=== PATIENT | male | born 1955 | race Hispanic/Latino ===

== ENCOUNTER 2016-09-13 09:27 | Emergency (ER) | payer OTHER ==
[~2016-09-13] VITALS: Ht 167.6 cm; Wt 81.6 kg
[~2016-09-13 09:27] MED LIST: ADVAIR 250-501 EACH INH; AMLODIPINE BESY10 M1 PO; ATORVASTATIN CA40 M1 PO; COUMADIN5 M2 PO; DEPAKOTE500 M1 PO; ELIQUIS5 M1 PO; GABAPENTIN300 M2 PO; HYDROXYZINE PAM50 M1 PO; IRON SUPPLEMEN325 MG PO; LEXAPRO5 M1 PO; LISINOPRIL-HCT1 EAC1 PO; OMEPRAZOLE40 M1 PO; OXYCODONE HCL10 M2 PO; OXYCODONE HCL5 M1 PO; PERCOCET 5-3251 EACH PO; PROVENTIL HFA6.7 GM; PROVENTIL HFA6.7 GM INH; VALIUM5 M2 PO; XARELTO10 M1 PO; XARELTO20 M2 PO
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
[2016-09-13 11:18] VITALS: BP 140/74
[2016-09-13 11:25] LABS: ABSOLUTE BASOPHIL COUNT 0 /CUMM (0.0-0.2); ABSOLUTE EOSINOPHIL COUNT 0.3 /CUMM (0.0-0.7); ABSOLUTE GRANULOCYTE CT 1.7 /CUMM (1.4-6.5); ABSOLUTE LYMPH COUNT 1.5 /CUMM (1.2-3.4); ABSOLUTE MONOCYTE COUNT 0.3 /CUMM (0.10-0.60); BASOPHIL % 0.8 % (0.0-2.0); EOSINOPHIL % 7.9 % (0-5); GRANULOCYTE % 45.5 % (42.2-75.2); HEMATOCRIT 30.4 % (42-52); MEAN CORPUSCULAR HGB 30.8 PG (27.0-31.0); MEAN CORPUSCULAR HGB CONC 33.3 G/DL (33.0-37.0); MEAN CORPUSCULAR VOLUME 92.6 FL (80.0-94.0); MEAN PLATELET VOLUME 7.7 FL (7.4-10.4); PLATELET COUNT 168 /CUMM (130-400); RBC DISTRIBUTION WIDTH 13.6 % (11.5-14.5); RED BLOOD CELL CT 3.28 /CUMM (4.70-6.10); WHITE BLOOD CELL COUNT 3.8 /CUMM (4.8-10.8)
[2016-09-13] MEDS ORDERED: PERCOCET 5-3251 EACH PO (12:05)
== END 2016-09-13 12:15 ==
LOC: ERH 09:27
PROVIDERS: Physician Assistant
DX: G89.29 Other chronic pain (principal); R07.9 Chest pain, unspecified
CPT/HCPCS: 93005; 93010

== ENCOUNTER 2016-10-05 12:08 | Emergency (ER) | payer OTHER ==
--- NOTE | 2016-10-05 13:10 | RADIOLOGY REPORT ---
EXAMINATION: XR SHOULDER, LEFT CLINICAL INFORMATION: Pain after fall. Decreased range of motion. COMPARISON: None TECHNIQUE: AP external rotation, Grashey, scapular Y, and axillary views of the left shoulder. FINDINGS: There is no visible acute fracture or dislocation. There is a large calcification lateral to the femoral head suggestive of calcific bursitis. The AC joint and glenohumeral joint space is maintained. IMPRESSION: Large calcific bursitis. No visible acute fracture or dislocation seen.
--- NOTE | 2016-10-05 13:28 | ED UPPER/LOWER EXTREMITY COMPL ---
History of Present Illness General Chief Complaint: Fall Stated Complaint: PT STATES " I FELL IM IN PAIN" Source: patient Exam Limitations: no limitations Vital Signs & Intake/Output Vital Signs & Intake/Output Vital Signs Date Time Temp Pulse Resp B/P B/P Pulse O2 O2 Flow FiO2 Mean Ox Delivery Rate 10/05 1441 98 10/05 1434 97.8 62 16 143/66 98 Room Air 10/05 1222 97.7 61 22 138/74 98 Allergies Coded Allergies: ciprofloxacin (From CIPRO) (affected kidneys 02/07/16) Reconcile Medications Albuterol Sulfate (Proventil Hfa) 6.7 GM HFA.AER.AD 2 PUF INH 4 TIMES/DAY BREATHING (Reported) Apixaban (Eliquis) 5 MG TABLET 1 TAB PO BID PVD Atorvastatin Calcium 40 MG TABLET 1 TAB PO DAILY HIGH CHOLESTEROL (Reported) Diazepam (Valium) 5 MG TABLET 1 TAB PO DAILY SPASMS (Reported) Divalproex Sodium (Depakote) 500 MG TABLET.DR 1 TAB PO DAILY SEIZURE ( Reported) Divalproex Sodium (Depakote) 500 MG TABLET.DR 1 TAB PO AT BEDTIME SEIZURE ( Reported) Escitalopram Oxalate (Lexapro) 5 MG TABLET 1 TAB PO DAILY DEPRESSION ( Reported) Ferrous Sulfate (Iron Supplement) 325 MG TABLET 1 TAB PO DAILY IRON, VITAMIN (Reported) Fluticasone/Salmeterol (Advair 250-50 Diskus) 1 EACH BLST.W.DEV 1 PUF INH BID ASTHMA (Reported) Gabapentin 300 MG CAPSULE 1 CAP PO TID NEUROPATHY (Reported) Hydroxyzine Pamoate 50 MG CAPSULE 1 CAP PO TID Antihistamine (Reported) Omeprazole 40 MG CAPSULE.DR 1 CAP PO DAILY GERD (Reported) Oxycodone HCl/Acetaminophen (Percocet 5-325 MG Tablet) 1 EACH TABLET 1 TAB PO Q4-6 PRN pain Oxycodone HCl/Acetaminophen (Percocet 5-325 MG Tablet) 1 EACH TABLET 1 TAB PO BID pain Oxycodone HCl/Acetaminophen (Percocet 5-325 MG Tablet) 5 MG-325 MG TABLET 1 TAB PO Q6H PRN PAIN Oxycodone HCl/Acetaminophen (Percocet 5-325 MG Tablet) 1 EACH TABLET 1 TAB PO Q4-6 PRN pain . Oxycodone HCl/Acetaminophen (Percocet 5-325 MG Tablet) 5 MG-325 MG TABLET 1 TAB PO BID PRN PAIN Triage Note: PER PT "DON'T KNOW IF IT WAS A SZ OR WHAT, BUT YESTERDAY WOKE UP ON FLOOR,TODAY UNABLE TO RAISE SHOULDER ON L SIDE. ALSO L KNEE HURTS A BIT. DECREASED ROM OF L SHOULDER Triage Nurses Notes Reviewed? yes Onset: Abrupt Duration: constant Timing: recent history Severity: severe Severity Numbers: 10 HPI: Patient is a 61-year-old male with past medical history of seizure who is compliant with his Depakote medications to presents to emergency room stating that yesterday patient believes that he had a seizure at his house where he woke up on the floor however he does not recall the events prior. Patient was woken up by his dog licking his face however after the event patient has been complaining of sharp stabbing history left-sided shoulder pain. Patient states that he took multiple previously prescribed narcotic and pain medications with no relief of symptoms. Patient states that left arm movements make worse. Denies any current headache blurred vision neck pain back pain abdominal pain and elbow pain wrist pain. Patient is RIGHT arm dominant Denies any tongue biting episode or bowel bladder incontinence after THE EPISODE YESTERDAY Past History Travel History Traveled to [facility] [place] past 21 day No Medical History Any Pertinent Medical History? see below for history Neurological: CVA, seizure EENT: NONE Cardiovascular: hypertension, PVD, HIGH CHOLESTEROL Respiratory: asthma Gastrointestinal: GERD Hepatic: NONE Renal: NONE Musculoskeletal: NONE Psychiatric: NONE Endocrine: NONE Blood Disorders: NONE Cancer(s): NONE ADMIN ASST/Reproductive: NONE History of MRSA: No History of VRE: No History of CDIFF: No Surgical History Surgical History: SKIN GRAFT PERIPHERAL VASCULAR PROC Psychosocial History Who do you live with Significant Other Services at Home None What is your primary language Iranian Tobacco Use: Never used Family History Hx Contributory? No Review of Systems Review of Systems Constitutional: Reports: no symptoms. EENTM: Reports: no symptoms. Respiratory: Reports: no symptoms. Cardiovascular: Reports: no symptoms. Gastrointestinal/Abdominal: Reports: no symptoms. Genitourinary: Reports: no symptoms. Musculoskeletal: Reports: see HPI, joint pain. Skin: Reports: no symptoms. Neurological/Psychological: Reports: no symptoms. Hematologic/Endocrine: Reports: no symptoms. Immunological: Reports: no symptoms. All Other Systems: Reviewed and Negative Physical Exam Physical Exam General Appearance: no apparent distress, alert, comfortable Neurologic/Tendon: normal sensation, normal motor functions, normal tendon functions, responds to pain, no evidence tendon injury, no pulse deficit Skin: intact, normal color, warm/dry Comments: Well-developed well-nourished person in no acute distress HEENT: Normal EENT exam, extraocular motion intact, no nystagmus. Pupils equally round and reactive to light and accommodation. Nose is atraumatic. External auditory canal and Tympanic membranes clear. Pharynx normal. No swelling or edema. Neck: Supple, no lymphadenopathy, normal range of motion without pain or tenderness No central spinous tenderness Back: Nontender, no CVA tenderness. No central spinous tenderness Cardiovascular: Regular rate and rhythms no murmurs rubs or gallops, normal JVP Respiratory: Chest nontender. No respiratory distress.breath sounds clear to auscultation bilaterally Abdomen: Soft, nontender nondistended, no appreciable organomegaly. Normal bowel sounds. No ascites Extremity: No edema, no calf tenderness to palpation, normal and equal pulses. Left shoulder normal inspection generalized glenohumeral point tenderness, decreased active range of motion noted abduction and flexion to 20 with pain Left elbow normal inspection nontender Left upper extremity dermatomes intact radial pulse +2 Neuro: Alert oriented x3, motor sensory normal, cranial nerves II through XII grossly intact. Skin: No appreciable rash on exposed skin, skin is warm and dry. Psych: Mood and affect is normal, memory and judgment is normal. Progress Differential Diagnosis: arterial insufficiency, compartment syndrome, contusion, dislocation, DVT, fracture, gout, septic arthritis, sprain, tendon injury, SEIZURE, SYNCOPE, ELECTROLYTE ABNORMALITY, CARDIAC ARRHYTHMIA Plan of Care: Orders Procedure Date/time Status Durable Medical Equipment 10/05 1411 Active MAGNESIUM 10/05 1342 Complete DEPAKOTE LEVEL 10/05 1342 Complete COMPREHENSIVE METABOLIC PANEL 10/05 1342 Complete CBC WITHOUT DIFFERENTIAL 10/05 1342 Complete EKG 10/05 1342 Active Laboratory Tests 10/05/16 1352: Anion Gap 14, Estimated GFR 52 L, BUN/Creatinine Ratio 26.4 H, Glucose 100 H, Calcium 9.0, Magnesium 2.2, Total Bilirubin 0.7, AST 14 L, ALT 27, Alkaline Phosphatase 107, Total Protein 7.6, Albumin 4.4, Globulin 3.2, Albumin/Globulin Ratio 1.4, CBC w Diff NO MAN DIFF REQ, RBC 3.82 L, MCV 90.3, MCH 30.9, RDW 13.6 , MPV 8.0, Gran % 71.2, Lymphocytes % 24.7, Monocytes % 2.6, Eosinophils % 1.1, Basophils % 0.4, Absolute Granulocytes 5.0, Absolute Lymphocytes 1.7, Absolute Monocytes 0.2, Absolute Eosinophils 0.1, Absolute Basophils 0, PUBS MCHC 34.2, Valproic Acid 43.6 L Patient currently is resting comfortable no apparent distress no osseous injury noted on x-rays however a shoulder immobilizer was placed to left arm. Premature neurovascular was intact. Patient was strongly advised to follow-up with [facility]THO as directed in discharge instructions. Patient also received a increased one-time dose of Depakote due to his subtherapeutic levels. EKG and blood work was also unremarkable. Upon discharge patient looks well no apparent distress and will comply with discharge instructions and had no questions (SHARDA VIVAS) Diagnostic Imaging: Viewed by Me: Radiology Read. Radiology Impression: no fracture Initial ED EKG: nsr, 58 bpm Comments: PATIENT: HEAVENLY VAUGHN PRESENT AGE: 61 PATIENT ACCOUNT NO: [id number] : 59 LOCATION: ER ORDERING PHYSICIAN: LUIS RODRIGUEZ DO (TBS) SERVICE DATE: 10/05/16 EXAM TYPE: RAD - XRY-SHOULDER COMPLETE-LEFT EXAMINATION: XR SHOULDER, LEFT CLINICAL INFORMATION: Pain after fall. Decreased range of motion. COMPARISON: None TECHNIQUE: AP external rotation, Grashey, scapular Y, and axillary views of the left shoulder. FINDINGS: There is no visible acute fracture or dislocation. There is a large calcification lateral to the femoral head suggestive of calcific bursitis. The AC joint and glenohumeral joint space is maintained. IMPRESSION: Large calcific bursitis. No visible acute fracture or dislocation seen. DICTATED BY: CAM LION,NOEMY Departure Departure Disposition: HOME OR SELF CARE Condition: Stable Clinical Impression Primary Impression: Left shoulder pain Secondary Impressions: Calcific tendinitis of left shoulder Referrals: UNKNOWN (PCP/Family) Additional Instructions: As discussed continue home medications as directed. Follow-up with your primary care doctor next week for repeat evaluation and repeat Depakote levels. Begin icing the area of the left shoulder 20 minutes every 2 hours. Begin using the shoulder immobilizer for stability and comfort until he can move the arm without pain. Begin the prescription of Percocet for breakthrough pain relief. If symptoms worsen return to emergency room. If YOUR SHOULDER IS NO better in one week follow-up with orthopedic doctor Marcial for further evaluation prescription is waiting at [facility] Departure Forms: Customer Survey General Discharge Information Prescriptions: Current Visit Scripts Oxycodone HCl/Acetaminophen (Percocet 5-325 MG Tablet) 1 TAB PO BID PRN PAIN #6 TAB
[2016-10-05 13:59] LABS: ABSOLUTE BASOPHIL COUNT 0 /CUMM (0.0-0.2); ABSOLUTE EOSINOPHIL COUNT 0.1 /CUMM (0.0-0.7); ABSOLUTE LYMPH COUNT 1.7 /CUMM (1.2-3.4); ABSOLUTE MONOCYTE COUNT 0.2 /CUMM (0.10-0.60); BASOPHIL % 0.4 % (0.0-2.0); EOSINOPHIL % 1.1 % (0-5); HEMATOCRIT 34.5 % (42-52); MEAN CORPUSCULAR HGB 30.9 PG (27.0-31.0); MEAN CORPUSCULAR HGB CONC 34.2 G/DL (33.0-37.0); MEAN CORPUSCULAR VOLUME 90.3 FL (80.0-94.0); PLATELET COUNT 271 /CUMM (130-400); RBC DISTRIBUTION WIDTH 13.6 % (11.5-14.5); RED BLOOD CELL CT 3.82 /CUMM (4.70-6.10)
[2016-10-05 14:00] LABS: GRANULOCYTE % 71.2 % (42.2-75.2)
[2016-10-05] MEDS ORDERED: PERCOCET 5-3251 EACH PO (14:32)
[2016-10-05 14:34] VITALS: BP 143/66
== END 2016-10-05 14:44 ==
LOC: ERH 12:08
PROVIDERS: Physician Assistant
DX: M75.32 Calcific tendinitis of left shoulder (principal)
CPT/HCPCS: 73030-LT; 93005; 93010

== ENCOUNTER 2017-11-04 01:32 | Inpatient (IN) | payer OTHER ==
[~2017-11-04] VITALS: Ht 170.2 cm; Wt 93.1 kg
[~2017-11-04 01:32] MED LIST changes: +LIDOCAINE1 EACH TOP; +NEXIUM20 M1 PO; +PENICILLIN V P500 M1 PO
--- NOTE | 2017-11-04 11:05 | Operative Report ---
Operative/Inv Procedure Report Surgery Date: 11/04/17 Name of Procedure: Redo Left common femoral endarterectomy with bovine patch angioplasty Pre-Operative Diagnosis: PAD Post-Operative Diagnosis: PAD Estimated Blood Loss: less than 50ml Surgeon/Windows Security Engineer: Cody LION,Narciso Jarquin MD, Brad (asst.) Anesthesia: laryngeal mask airway Specimens: Plaque sent to pathology Complications: None Condition: Stable to PACU Operative Indication: 62-year-old male with a history of limb threatening ischemia and a threatened bypass graft related to inflow stenosis in addition to in-stent stenosis. Risk benefits and alternatives explained to patient including limb loss and . He decide to proceed with intervention. Operative/Procedure Note Note: The patient was transported to the operating room and laid supine on the operative table. Of note two attending surgeons were necessary for this case due to the fact that is a redo intervention and because of the complexity of this case. There was not a suitable PA or resident to assist. A oblique incision was made over the area of the inguinal ligament. Sharp dissection was carried down through the skin and subcutaneous tissue to the level of the femoral sheath. There was scar tissue in the area related to the previous intervention. This was retracted and excised. Eventually the common femoral artery was circumferentially controlled. The profunda femoris and superficial femoral artery were also controlled with vessel loops. The artery was then clamped after the patient was bolused with 6000 units of heparin. Borrego scissors were used to open the common femoral artery into the superficial femoral artery. Loosely placed stent was encountered which was in proximity to the common femoral artery and profunda femoris. The most proximal portion of the stent was then trimmed back. Dense plaque was noted in the area and this also was excised and removed with [place] elevator. The wound was copiously irrigated. Good backbleeding was now noted. A bovine pericardial patch was then brought into the field and sewn on the anterior portion of the artery. This was sewn distally first and run proximally. Once this was completed all occluding clamps were removed and good pulsatile flow was now noted into the distal artery. 2 individual Prolene sutures were used for hemostasis. Gelfoam thrombin and Surgi-Giovani was also placed on the wound. Attention was now turned to closure. This was done in multiple layers with interrupted 20 and 3-0 Vicryl sutures. The skin was repaired with nylon sutures and skin lois. A Prevena wound dressing was then placed over the left groin. Sponge needle and instrument counts were correct. The patient tolerated the procedure well was transported to recovery area stable awake and alert. CC: Mitesh French MD
[2017-11-04 13:30] VITALS: BP 130/78
--- NOTE | 2017-11-04 13:37 | Cons- Medical ---
Andrew Chairez MD 11/04/17 1337: General Information and HPI Consulting Request Date of Consult: 11/04/17 Requested By: Britton Ross MD History of Present Illness: 62-year-old man with past medical history of PAD/PVD status post femoropopliteal bypass, CAD, seizure disorder on Depakote, hypertension, hyperlipidemia, asthma, GERD, and tobacco use admitted on 11/04/17 to the surgical service for a repeat left common femoral endarterectomy with bovine patch angioplasty. Patient reportedly tolerated the procedure well however in the PACU postoperatively was seen to have multiple recurrent seizures for which Ativan and Depakote were reportedly given that successfully terminated the seizures. Patient remained in a post ictal state but otherwise hemodynamically stable and was transferred back up to the general medicine floor. Medicine consult was placed for management of his postoperative seizures. Presently patient states that he feels well and has no memory of the seizures. He is awake and alert and oriented to person, place, and time. He denies any new neurologic deficits or numbness/tingling/weakness. He reports that he missed the last few doses of his Depakote as he simply "forgot". Otherwise he reports medication compliance with his antiepileptic regimen but admits to a few seizures each month. He is followed by a neurologist over at [facility]. Review of systems He otherwise denies any headache, fever, chills, blurred/double vision, lightheadedness, dizziness, chest pain, palpitations, heartburn, shortness breath, cough, nausea, vomiting, diarrhea, constipation, urinary symptoms. Allergies/Medications Allergies: Coded Allergies: ciprofloxacin (From CIPRO) (affected kidneys 02/07/16) Home Med List: Amlodipine Besylate 10 MG TABLET 1 TAB PO DAILY BP (Reported) Apixaban (Eliquis) 5 MG TABLET 1 TAB PO BID PVD Divalproex Sodium (Depakote) 500 MG TABLET.DR 2 TAB PO BID SEIZURE (Reported) Esomeprazole Magnesium (Nexium) 20 MG CAPSULE.DR 1 CAP PO DAILY GI (Reported) Gabapentin 300 MG CAPSULE 1 CAP PO BID NERVE PAIN (Reported) Lisinopril/Hydrochlorothiazide (Lisinopril-Hctz 20-25 MG Tab) 20 MG-25 MG TABLET 1 TAB PO DAILY BP (Reported) Oxycodone HCl/Acetaminophen (Percocet 5-325 MG Tablet) 5 MG-325 MG TABLET 1-2 TAB PO Q4-6 PRN PRN pain control tylenol alternatively. do not combine. Review of Systems Review of Systems Constitutional: Reports: see HPI. Past History Medical History Neurological: CVA, seizure EENT: NONE Cardiovascular: hypertension, PVD, HIGH CHOLESTEROL Respiratory: asthma Gastrointestinal: GERD Hepatic: NONE Renal: NONE Musculoskeletal: NONE Psychiatric: NONE Endocrine: NONE Blood Disorders: NONE Cancer(s): NONE SPINDLE SANDER/Reproductive: NONE Surgical History Surgical History: SKIN GRAFT PERIPHERAL VASCULAR PROC Psychosocial History Services at Home: None Primary Language: Azeri Smoking Status: Former Smoker Functional Ability ADLs Independent: dressing, eating. Needs Assist: toileting, bathing. Ambulation: non-ambulatory Exam & Diagnostic Data Last 24 Hrs of Vital Signs/I&O Vital Signs Date Time Temp Pulse Resp B/P B/P Pulse O2 O2 Flow FiO2 Mean Ox Delivery Rate 11/04 1330 97.7 62 16 130/78 97 Nasal 2.0L Cannula Intake & Output 11/04 1600 11/04 0800 11/04 0000 Intake Total Output Total Balance Patient 89.358 kg Weight Physical Exam Other Physical Findings: General - well developed, well nourished middle aged man in no acute distress HEENT - NCAT, PERRL, EOMI, anicteric sclera Neck- Supple, no JVD/HJR, no bruits, trachea midline, thyroid normal Cardio - S1, S2 w/o murmurs/gallops/rubs; regular rate and rhythm Resp - Clear to auscultation bilaterally GI - Soft, nontender, nondistended, bowel sounds present Neuro - Awake and alert, oriented 3, CN II - XII grossly intact, sensation/ coordination/speech intact, strength 4/5 in bilateral upper extremities, strength 3/5 bilateral lower extremities limited due to pain; gait not assessed Extremities - No edema, faint distal pulses, multiple surgical scars on lower extremities Last 24 Hrs of Labs/Avtar: None recorded Assessment/Plan Assessment/Plan 62-year-old man with multiple medical problems significant for PAD/PVD status post femoropopliteal bypass, seizure disorder on Depakote, hypertension, hyperlipidemia, and coronary artery disease admitted for redo left common femoral endarterectomy whom developed postoperative seizures. Presently patient states that he feels well and is complaining of only moderate lower extremity pain that is apparently chronic. There are no documented vital signs in the electronic medical record. Patient's physical exam is unremarkable other than his known PAD with faint pulses. There are no preoperative labs drawn. Clinically patient appears to have had breakthrough seizures in the context of physiologic stress from the surgery and medication noncompliance as he has not taken his medicine in approximately 3 days. Patient should be monitored for further seizure activity while still in the hospital and maintained on his previous dose of Depakote. Should he have any further breakthrough seizures they should be of reported with benzodiazepine therapy. Problem list -Postoperative seizure activity, likely breakthrough seizures -PAD/PVD status post redo left common femoral endarterectomy -History of seizure disorder, on Depakote -Coronary artery disease -Hypertension -Hyperlipidemia -Asthma -GERD -Tobacco user Plan -Postoperative care per surgical team -Continue to monitor for seizure activity, seizure precautions -Restart home dose of Depakote -Give Ativan as needed for further seizure activity, contact MOD if this occurs -DVT prophylaxis at all times -outpatient neurology follow-up for his persistent breakthrough seizures Consult Acknowledgment - Thank you for your consult request. Matthew Arizmendi MD 11/04/172106: Assessment/Plan Consult Acknowledgment - Thank you for your consult request. Attending MD Review Statement Attending Statement Attending MD Statement: examined this patient, discuss w/resident/PA/FIELD CROP FARM WORKER, agreed w/resident/PA/FIELD CROP FARM WORKER, reviewed EMR data (avail), amended to note Attending Assessment/Plan: The patient is a 62 yo male with h/o PAD/PVD (s/p fempop bypas), CAD, HTN, HL, ashtma, GERD, and seizure disorder (on Depakote, however not taken in several days) who underwent repeat left common femoral endarterectomy with bovine patch angioplasty with Dr. Dumont today. Post operatively in the PACU he experienced seizures. The patient received Ativan/Depakote and no further seizures were noted. He was drowsy at the time of my exam on the medical floor. He does have occasional seizures and there is some quesion regarding compliance with Depakote. Physical Exam: VS: T 97.7 P 62, R 16, BP 130/78, PO 97% 2L (post op) HEENT: eyes- PERRLA, EOMI marlena- dry Neck: no bruits or JVD Chest: diminished BS at bases, clear Cor: RRR nl S1, S2 w/o murm Abd: BS+, soft, NT Ext: S/p surgery LLE. Labs/Tests- as above Impression/Plan: #Seizure Disorder- with seizures post op vascular surgery today. The patient admits that he had not taken his Depakote x several days. May intermittently have seizures (?due to forgetting meds). Responded to Ativan and given Depakote in PACU. Plan: Continue Depakote and suggest check level after several doses. Seizure precautions. Check electrolytes/Mg. #PAD/PVD- as above, s/p surgery (repeat). Plan: Post op care as per Vascular surgery. #CAD- no chest pain or other symptoms. Plan: Will follow on current meds. #HTN- BP as above. Plan: Continue Amlodipine/Lisinopril/HCTZ and monitor BP closely post operatively. #Neuropathic Pain- on Gabapentin. Plan: Continue Gabapentin. #GERD- on Nexium. Plan: Substitute Omeprazole in hospital.
--- NOTE | 2017-11-04 14:35 | PN- Vascular Surgery ---
Subjective Subjective: POST-OP NOTE Reports expected left groin discomfort. No nausea. Denies dizziness. No shortness of breath. No chest pains. The patient was given 1mg IV ativan in PACU for seizure observed by PACU staff on two occasions. His depakote was given after these events, and resumed to continue tonight, as his usual home dose is twice daily. He reports he ambulates with a cane at baseline. He is eager to go home tomorrow to return to his "nine dogs". Objective Vital Signs and I&Os Vital Signs Date Time Temp Pulse Resp B/P B/P Pulse O2 O2 Flow FiO2 Mean Ox Delivery Rate 11/04 1330 97.7 62 16 130/78 97 Nasal 2.0L Cannula Intake & Output 11/04 1600 11/04 0800 11/04 0000 11/03 1600 11/03 0800 11/03 0000 Intake Total Output Total Balance Patient 197 lb Weight Physical Exam: General - alert & oriented x 3. comfortable appearing. no acute distress. Lungs - clear bilaterally. no w/r/r. Cardiac - s1s2. Abdomen - soft. nontender. Extremities - warm bilaterally. prevena wound vac in place, to suction along left medial groin. warm bilaterally. dopplerable signals distally bilaterally, PTs stronger than DP signals. able to move toes with left lower extremity, but not his right lower extremity. Current Medications: Current Medications Sig/Hermilo Start time Last Medication Dose Route Stop Time Status Admin Acetaminophen 1,000 MG Q6P PRN 11/04 1415 AC N/A 1 UNIT IV Acetaminophen 650 MG Q6P PRN 11/04 1315 DC PO Amlodipine Besylate 10 MG DAILY 11/05 09 DC PO Amlodipine Besylate 10 MG DAILY 11/05 09 AC PO Apixaban 2.5 MG BID 11/05 09 AC PO Cefazolin Sodium 2 GM Q8H 11/04 1615 AC N/A 1 UNIT IV 11/05 0044 Dextrose/Sodium 1,000 ML .[id number] 11/04 1315 AC 11/04 Chloride IV 11/05 0234 1336 Divalproex Sodium 1,000 MG BID 11/04 2100 DC PO Divalproex Sodium 1,000 MG BID 11/04 2100 AC PO Divalproex Sodium 1,000 MG ONCE ONE 11/04 1145 DC PO 11/04 1146 Docusate Sodium 100 MG BID 11/04 2100 AC PO Gabapentin 300 MG BID 11/04 2100 DC PO Gabapentin 300 MG BID 11/04 2100 AC PO Gabapentin 300 MG ONCE ONE 11/04 1145 DC PO 11/04 1146 Hydrochlorothiazide 25 MG DAILY 11/05 0900 AC PO Lisinopril 20 MG DAILY 11/05 0900 DC PO Lisinopril 20 MG DAILY 11/05 09 AC PO Lorazepam 1 MG Q4P PRN 11/04 1415 AC IV Morphine Sulfate 2 MG Q2P PRN 11/04 1415 AC IV Omeprazole 20 MG DAILY AC 11/05 0700 DC PO Omeprazole 20 MG DAILY AC 11/05 07 AC PO Ondansetron HCl 4 MG Q6P PRN 11/04 1315 AC IV Oxycodone HCl 5 MG Q4P PRN 11/04 1415 AC PO Oxycodone HCl 10 MG Q4P PRN 11/04 1415 AC 11/04 PO 1417 Oxycodone/ 1 TAB Q4P PRN 11/04 1315 DC Acetaminophen PO Oxycodone/ 2 TAB Q4P PRN 11/04 1315 DC Acetaminophen PO Assessment/Plan Assessment/Plan This 62 year old male with hx pvd, htn, hld, cad, cri, gerd, chronic pain, and seizures, is POD#0 s/p redo left common femoral endarterectomy with bovine patch angioplasty for PAD, post-op seizures advance diet as tolerated pain medication as ordered f/u am labs eliquis BID to resume tomorrow morning bedrest overnight PT eval in AM (ambulates with cane @ baseline) prevena wound vac to remain in place x 1 week, and then removed once battery life ends f/u medical consult re: seizures home dose of depakote ordered twice daily iv ativan prn seizure activity will d/w Core Measures Venous Thromboembolism VTE Risk Factors Surgery No Mechanical VTE Prophylaxis d/t N/A MechProphylax Ordered No VTE Pharm Prophylaxis d/t NA PharmProphylax ordered
--- NOTE | 2017-11-04 14:58 | Patient Discharge Instructions ---
Discharge Instructions General Discharge Information You were seen/treated for: PAD breakthrough seizures You had these procedures: Surgery Date: 11/04/17 Name of Procedure: Redo Left common femoral endarterectomy with bovine patch angioplasty Watch for these problems: fever>101.3, increased pain, redness/swelling/drainage, dizziness, shortness of breath, chest pains Other wound care: prevena wound vac device to remain in place until the battery dies, and then removed / thrown away. One week battery life. Keep dressing clean & dry. Diet Continue normal diet: Yes Recommended Diet: Heart Healthy Activity Full Activity/No Limits: No Activity Self Limited: Yes Pounds, do NOT lift more than: 10 Activity Limited to: Weight bear as tolerated Other activity limits: ambulate with cane as tolerated Acute Coronary Syndrome Inclusion Criteria At DC or during hospital stay patient has or had the following: ACS DIAGNOSIS No Discharge Core Measures Meds if any: Prescribed or Continued at Discharge Meds if any: NOT Prescribed or Continued at Discharge Congestive Heart Failure Inclusion Criteria At DC or during hospital stay patient has or had the following: CHF DIAGNOSIS No Discharge Core Measures Meds if any: Prescribed or Continued at Discharge Meds if any: NOT Prescribed or Continued at Discharge Cerebrovascular accident Inclusion Criteria At DC or during hospital stay patient has or had the following: CVA/TIA Diagnosis No Discharge Core Measures Meds if any: Prescribed or Continued at Discharge Meds if any: NOT Prescribed or Continued at Discharge Venous thromboembolism Inclusion Criteria VTE Diagnosis No VTE Type NONE VTE Confirmed by (Test) NONE Discharge Core Measures - Per Current guidelines, there needs to be overlap - treatment for the first 5 days of Warfarin therapy. - If discharged on Warfarin prior to 5 days of - overlap therapy, the patient will need to be - assessed for post discharge needs including - *Post discharge parental anticoagulation - *Warfarin and/or parental anticoagulation education - *Follow up date to check INR post discharge At least 5 days overlap therapy as Inpatient No Meds if any: Prescribed or Continued at Discharge Note: Overlap Therapy is Warfarin and Anticoagulant Meds if any: NOT Prescribed or Continued at Discharge
[2017-11-04] MEDS ORDERED: PERCOCET 5-3251 EACH PO (15:01)
--- NOTE | 2017-11-04 15:10 | Surg Short-stay <48hrs Dis Sum ---
Visit Information Visit Dates Admission Date: 11/04/17 Discharge Date: 11/05/17 Surgical Short Stay DC Summary Admission Diagnosis: PAD Final Diagnosis: same as above, s/p Surgery Date: 11/04/17 Name of Procedure: Redo Left common femoral endarterectomy with bovine patch angioplasty Procedure(s): Surgery Date: 11/04/17 Name of Procedure: Redo Left common femoral endarterectomy with bovine patch angioplasty Summary/Significant Findings: Electively scheduled redo Left common femoral endarterectomy with bovine patch angioplasty on 11/04/17 by for history of PAD. Seizure activity post- operatively in PACU, which terminated after given IV ativan and depakote. A medical consult was obtained, for co-management of his baseline co-morbidities, including seizures. His eliquis was resumed on post-op day#1. A prevena wound vac was placed during the time of surgery, which should remain in place and does not require any changes for the duration of the battery life, which is approximatedly one week. A PT eval was obtained for assessment of his safety, as he ambulates with a cane at baseline. Condition at Discharge: stable Discharge Disposition: home or self care Discharge instructions provided to patient/family: Yes Post discharge follow-up plan: one week follow up with Prevena wound vac to remain in place for the duration of the battery, and then discarded, for approximately one week
[2017-11-04 17:06] VITALS: BP 118/62
[2017-11-04 20:32] VITALS: BP 128/53
[2017-11-04 22:32] VITALS: BP 125/88
[2017-11-05 03:24] VITALS: BP 113/60
[2017-11-05 06:49] VITALS: BP 113/73
[2017-11-05 08:34] LABS: ABSOLUTE BASOPHIL COUNT 0 /CUMM (0.0-0.2); ABSOLUTE EOSINOPHIL COUNT 0.3 /CUMM (0.0-0.7); ABSOLUTE GRANULOCYTE CT 3.3 /CUMM (1.4-6.5); ABSOLUTE LYMPH COUNT 1.7 /CUMM (1.2-3.4); ABSOLUTE MONOCYTE COUNT 0.3 /CUMM (0.10-0.60); BASOPHIL % 0.7 % (0.0-2.0); EOSINOPHIL % 4.6 % (0-5); GRANULOCYTE % 58.5 % (42.2-75.2); HEMATOCRIT 30.3 % (42-52); MEAN CORPUSCULAR HGB 29.9 PG (27.0-31.0); MEAN CORPUSCULAR HGB CONC 33.3 G/DL (33.0-37.0); MEAN CORPUSCULAR VOLUME 89.8 FL (80.0-94.0); PLATELET COUNT 154 /CUMM (130-400); RBC DISTRIBUTION WIDTH 15.1 % (11.5-14.5); RED BLOOD CELL CT 3.38 /CUMM (4.70-6.10); WHITE BLOOD CELL COUNT 5.6 /CUMM (4.8-10.8)
--- NOTE | 2017-11-05 08:55 | PN- Medicine Consult ---
Jim LION,Debby 11/05/17 0854: Assessment/PlanMedical Consult Assessment/Plan Assessment: 62-year-old man with multiple medical problems significant for PAD/PVD status post femoropopliteal bypass, seizure disorder on Depakote, hypertension, hyperlipidemia, and coronary artery disease admitted for redo left common femoral endarterectomy whom developed postoperative seizures. Presently patient states that he feels well and is complaining of only moderate lower extremity pain that is apparently chronic. There are no documented vital signs in the electronic medical record. Patient's physical exam is unremarkable other than his known PAD with faint pulses. There are no preoperative labs drawn. Clinically patient appears to have had breakthrough seizures in the context of physiologic stress from the surgery and medication noncompliance as he has not taken his medicine in approximately 3 days. Patient should be monitored for further seizure activity while still in the hospital and maintained on his previous dose of Depakote. Should he have any further breakthrough seizures they should be of reported with benzodiazepine therapy. Problem list -Postoperative seizure activity, likely breakthrough seizures -PAD/PVD status post redo left common femoral endarterectomy -History of seizure disorder, on Depakote -Coronary artery disease -Hypertension -Hyperlipidemia -Asthma -GERD -Tobacco user Plan -Postoperative care per surgical team -Continue to monitor for seizure activity, seizure precautions -Restart home dose of Depakote -Give Ativan as needed for further seizure activity. -DVT prophylaxis at all times -outpatient neurology follow-up for his persistent breakthrough seizures Plan: as above Problem List: 1. Seizures Subjective Subjective: seen at bedside Remains stable overnight. No active pain. No complaints. Review of Systems Constitutional: Reports: see HPI. Objective Last 24 Hrs of Vital Signs/I&O Vital Signs Date Time Temp Pulse Resp B/P B/P Pulse O2 O2 Flow FiO2 Mean Ox Delivery Rate 11/05 0819 72 119/62 11/05 0800 98 Nasal 1.0L Cannula 11/05 0649 97.8 59 20 113/73 99 Room Air 11/05 0324 97.7 63 20 113/60 99 Nasal 2.0L Cannula 11/04 2232 97.5 62 20 125/88 97 Room Air 11/04 2032 97.7 66 20 128/53 98 Room Air 11/04 1911 Nasal 2.0L Cannula 11/04 1706 97.6 61 20 118/62 96 11/04 1600 95 Nasal 2.0L Cannula 11/04 1330 97.7 62 16 130/78 97 Nasal 2.0L Cannula Intake & Output 11/05 1600 11/05 0800 11/05 0000 Intake Total 600 1145 Output Total 1150 400 Balance -550 745 Intake, IV 600 545 Intake, Oral 600 Number 0 Bowel Movements Output, Urine 1150 400 Patient 93.1 kg Weight Weight Bed scale Measurement Method Physical Exam General Appearance: well developed/nourished, no apparent distress, alert, awake , comfortable Head: atraumatic, normal appearance Ears, Nose, Throat: normal pharynx, normal ENT inspection Neck: normal inspection, supple Cardiovascular: normal S1, S2 Respiratory: normal breath sounds, chest non-tender, no respiratory distress Abdomen: normal bowel sounds, soft, non-tender Current Medications: Current Medications Sig/Hermilo Start time Last Medication Dose Route Stop Time Status Admin Acetaminophen 1,000 MG Q6P PRN 11/04 1415 AC 11/05 N/A 1 UNIT IV 0324 Acetaminophen 650 MG Q6P PRN 11/04 1315 DC PO Amlodipine Besylate 10 MG DAILY 11/05 09 DC PO Amlodipine Besylate 10 MG DAILY 11/05 0900 AC 11/05 PO 0819 Apixaban 2.5 MG BID 11/05 09 AC 11/05 PO 0817 Cefazolin Sodium 2 GM Q8H 11/04 1615 DC 11/04 N/A 1 UNIT IV 11/05 0044 2353 Dextrose/Sodium 1,000 ML .[id number] 11/04 1315 DC 11/04 Chloride IV 11/05 0234 2214 Divalproex Sodium 1,000 MG BID 11/04 2100 DC PO Divalproex Sodium 1,000 MG BID 11/04 2100 AC 11/05 PO 0817 Divalproex Sodium 1,000 MG ONCE ONE 11/04 1145 DC PO 11/04 1146 Docusate Sodium 100 MG BID 11/04 2099 AC 11/05 PO 0817 Gabapentin 300 MG BID 11/04 2100 DC PO Gabapentin 300 MG BID 11/04 2100 AC 11/05 PO 0818 Gabapentin 300 MG ONCE ONE 11/04 1145 DC PO 11/04 1146 Hydrochlorothiazide 25 MG DAILY 11/05 0900 AC 11/05 PO 0819 Hydromorphone HCl 2 MG .STK-MED ONE 11/04 1129 DC IM 11/04 1130 Lisinopril 20 MG DAILY 11/05 0900 DC PO Lisinopril 20 MG DAILY 11/05 0900 AC 11/05 PO 0818 Lorazepam 1 MG Q4P PRN 11/04 1415 AC IV Morphine Sulfate 2 MG Q2P PRN 11/04 1415 AC 11/05 IV 0559 Omeprazole 20 MG DAILY AC 11/05 0700 DC PO Omeprazole 20 MG DAILY AC 11/05 0700 AC 11/05 PO 0553 Ondansetron HCl 4 MG Q6P PRN 11/04 1315 AC IV Oxycodone HCl 5 MG Q4P PRN 11/04 1415 AC PO Oxycodone HCl 10 MG Q4P PRN 11/04 1415 AC 11/05 PO 0811 Oxycodone/ 1 TAB Q4P PRN 11/04 1315 DC Acetaminophen PO Oxycodone/ 2 TAB Q4P PRN 11/04 1315 DC Acetaminophen PO Results Last 24 Hrs Lab/Avtar Results: Laboratory Tests 11/05/17 0724: Anion Gap 12, Estimated GFR > 60, BUN/Creatinine Ratio 20.9, CBC w Diff NO MAN DIFF REQ, RBC 3.38 L, MCV 89.8, MCH 29.9, MCHC 33.3, RDW 15.1 H, MPV 8.0, Gran % 58.5, Lymphocytes % 30.6, Monocytes % 5.6, Eosinophils % 4.6, Basophils % 0.7, Absolute Granulocytes 3.3, Absolute Lymphocytes 1.7, Absolute Monocytes 0.3, Absolute Eosinophils 0.3, Absolute Basophils 0 Matthew Arizmendi MD 11/05/17 6054: Attending MD Review Statement Attending Sign Off Attending Cosign Statement: I have: examined this patient, reviewed aval EMR data, discussd w/resident/PA/ HAND EMBROIDERER, agreed w/resident/PA/HAND EMBROIDERER, amended to note. Other Findings: The patient was seen and discussed with house staff. No further seizures noted. Will continue current dose of Depakote and follow. Agree with plan of care as outlined.
--- NOTE | 2017-11-05 10:21 | PN- Vascular Surgery ---
Surgical Brief Attending Note Brief Attending Note: VASCULAR ATTENDING NOTE: Pt. now POD #1 s/p L. ASSEMBLER GARMENT FORM endarterectomy. Stable . Mild pain. AF/VSS L. foot warm and well perfused. A/P PT eval. Resume A/C D/c home with Prevena in PM if stable F/U 11/08
[2017-11-05] MEDS ORDERED: OXYCODONE HCL5 M1 PO (11:16)
[2017-11-05 14:27] VITALS: BP 122/70
== END 2017-11-05 18:36 | DRG 181 ==
LOC: 2NB 01:32 → SDA 01:32 → ENRESERV 11:53 → ENTRNSPT 12:44 → EDTRNSPTSTS 12:48 → EDTRNSPT 12:48 → 2NB 13:00 → CMPTRNSPT 13:15 → ENPENDDIS 11-05 11:19 → ENTRNSPT 11-05 18:02 → EDTRNSPT 11-05 18:14 → EDTRNSPTSTS 11-05 18:32 → 2NB 11-05 18:36 → CMPTRNSPT 11-05 18:41
PROVIDERS: Physician Assistant
PROC: 04UY0KZ Supplement Lower Artery with Nonautologous Tissue Substitute, Open Approach (ICD-10-PCS; principal; 2017-11-04)
PROC: 04CL0ZZ Extirpation of Matter from Left Femoral Artery, Open Approach (ICD-10-PCS; principal; 2017-11-04)
DX: I70.212 Atherosclerosis of native arteries of extremities with intermittent claudication, left leg (principal); G40.909 Epilepsy, unspecified, not intractable, without status epilepticus; E78.5 Hyperlipidemia, unspecified; I10 Essential (primary) hypertension; K21.9 Gastro-esophageal reflux disease without esophagitis; Z88.1 Allergy status to other antibiotic agents; Z79.01 Long term (current) use of anticoagulants; Z79.51 Long term (current) use of inhaled steroids; F17.210 Nicotine dependence, cigarettes, uncomplicated
CPT/HCPCS: 2NBP; 36592; 82436; 87086; 97116-GO; 97161-GP; J0131; J0690; J1644; J2001; J2060; J2405; J7042

== ENCOUNTER 2017-11-13 19:51 | Inpatient (IN) | payer OTHER ==
[~2017-11-13] VITALS: Ht 170.2 cm; Wt 88.5 kg
--- NOTE | 2017-11-13 20:30 | ED GI/GU/ABDOMINAL COMPLAINT ---
History of Present Illness General Chief Complaint: General Adult Stated Complaint: "LT GROIN PAIN, FOUL ODER AND DISCHARGE" Source: patient, old records Exam Limitations: no limitations Vital Signs & Intake/Output Vital Signs & Intake/Output Vital Signs Date Time Temp Pulse Resp B/P B/P Pulse O2 O2 Flow FiO2 Mean Ox Delivery Rate 11/14 0123 97.6 59 20 130/70 97 11/14 0045 98.9 68 18 138/68 96 Room Air 11/13 2325 98.2 95 18 137/63 95 Room Air 11/13 2130 97.9 60 20 146/67 97 Room Air 11/14 2003 98.9 65 18 127/66 95 Room Air ED Intake and Output 11/14 0000 11/13 1200 Intake Total 500 Output Total 300 Balance 200 Intake, IV 500 Output, Urine 300 Patient 190 lb Weight Weight Estimated Measurement Method Allergies Coded Allergies: ciprofloxacin (From CIPRO) (affected kidneys 02/07/16) Reconcile Medications Amlodipine Besylate 10 MG TABLET 1 TAB PO DAILY BP (Reported) Apixaban (Eliquis) 5 MG TABLET 1 TAB PO BID PVD Divalproex Sodium (Depakote) 500 MG TABLET.DR 2 TAB PO BID SEIZURE (Reported) Esomeprazole Magnesium (Nexium) 20 MG CAPSULE.DR 1 CAP PO DAILY GI (Reported) Gabapentin 300 MG CAPSULE 1 CAP PO BID NERVE PAIN (Reported) Lisinopril/Hydrochlorothiazide (Lisinopril-Hctz 20-25 MG Tab) 20 MG-25 MG TABLET 1 TAB PO DAILY BP (Reported) Oxycodone HCl 5 MG TABLET 2-3 TAB PO Q6H PRN PAIN Triage Note: RECEIVED 62 YO MALE WITH S/P LEFT GROIN BYPASS LAST SATURDAY AT [facility]. PT DISCHARGED LAST SATURDAY AND DRAIN REMOVED LAST SATURDAY. PT REPORTS FEVER, CHILLS, PURULENT DRAINAGE FROM INCISION, WITH REDNESS AND PAIN. SURGEON DR BRITTON RILEY Triage Nurses Notes Reviewed? yes Duration: getting worse Timing: recent history Quality/Severity: severe, stabbing, throbbing Severity Numbers: 10 Radiation: no radiation HPI: Patient is a 62-year-old male with a past medical history of hypertension hyperlipidemia and peripheral vascular disease with multiple vascular surgical interventions in which on November [address] BARRIGA performed A Redo Left common femoral endarterectomy with bovine patch angioplasty in which after the procedure patient had a wound VAC placed to the surgical site of the left upper leg and groin region, states that the primary care doctor evaluated patient last week and started an unknown antibiotic patient followed up on Saturday with restless surgeon DR BARRIGA took the wound VAC off and on Saturday patient developed a Gradual onset of left groin pain swelling redness tenderness and malodorous purulent discharge symptoms have worsened since denies any fevers (Maxwell Marina) Past History Travel History Traveled to [place] past 21 day No Medical History Any Pertinent Medical History? see below for history Neurological: CVA, seizure EENT: NONE Cardiovascular: hypertension, PVD, HIGH CHOLESTEROL Respiratory: asthma Gastrointestinal: GERD Hepatic: NONE Renal: NONE Musculoskeletal: NONE Psychiatric: NONE Endocrine: NONE Blood Disorders: NONE Cancer(s): NONE NAVAL ARCHITECT SPECIALIST/Reproductive: NONE History of MRSA: No History of VRE: No History of CDIFF: No Surgical History Surgical History: SKIN GRAFT PERIPHERAL VASCULAR PROC Psychosocial History Who do you live with Significant Other Services at Home None What is your primary language Paraguayan Tobacco Use: Never used Family History Hx Contributory? No (Maxwell Marina) Review of Systems Review of Systems Constitutional: Reports: no symptoms. EENTM: Reports: no symptoms. Respiratory: Reports: no symptoms. Cardiovascular: Reports: no symptoms. GI: Reports: see HPI. Genitourinary: Reports: no symptoms. Musculoskeletal: Reports: no symptoms. Skin: Reports: see HPI, erythema. Neurological/Psychological: Reports: no symptoms. Hematologic/Endocrine: Reports: no symptoms. Immunologic/Allergic: Reports: no symptoms. All Other Systems: Reviewed and Negative (Maxwell Marina) Physical Exam Physical Exam General Appearance: no apparent distress, alert, comfortable Head: atraumatic Eyes: Bilateral: normal appearance. Ears, Nose, Throat, Mouth: moist mucous membrane Respiratory: no respiratory distress Cardiovascular: regular rate/rhythm Gastrointestinal: tenderness Neurologic/Psych: no motor/sensory deficits Core Measures ACS in differential dx? No Sepsis Present: No Sepsis Focused Exam Completed? No (Maxwell Marina) Progress Differential Diagnosis: perforated viscous Plan of Care: Orders Procedure Date/time Status Nothing by Mouth 11/15 B Active BASIC ELECTROLYTES PLUS BUN&CR 11/15 06 Active Regular Diet 11/14 B Active CBC WITHOUT DIFFERENTIAL 11/14 06 Active Turn and Reposition 11/14 0124 Active Skin Integrity Protocol 11/14 0123 Active Seizure Precautions 11/14 0117 Active Weight 11/14 0102 Active Vital Signs 11/14 0102 Active Teach/Educate 11/14 010 Active Pain Treatment and Response 11/14 010 Active Nutritional Intake, Monitor 11/14 0102 Active Isolation 11/14 0102 Active Intake & Output 11/14 0102 Active Patient Care Conference 11/14 0102 Active Activity/Ambulation 11/14 0102 Active LACTIC ACID 11/14 0036 Active URINALYSIS 11/14 0007 Complete Saline Lock 11/14 0003 Active Pathway - chart 11/14 0003 Active Patient Data 11/14 0003 Active Code Status 11/14 0003 Active VTE Mechanical Prophylaxis 11/14 UNK Active Vital Signs 11/14 UNK Complete MISTAKE 11/14 UNK Active Intake & Output 11/14 UNK Active TRANSFER ORDERS 11/13 2348 Active TRUNK AREA CULTURE 11/13 2256 Active OXYGEN SETUP (GEN) 11/13 2156 Active Saline Lock 11/13 2156 Active Admit to inpatient 11/13 2156 Active Vital Signs 11/13 2156 Active Activity/Ambulation 11/13 2156 Active Code Status 11/13 2156 Complete EKG 11/13 2152 Active BLOOD CULTURE 11/13 2136 Active LACTIC ACID 11/13 213 Complete COMPREHENSIVE METABOLIC PANEL 11/14 2135 Complete CBC WITHOUT DIFFERENTIAL 11/14 2135 Complete Current Medications Sig/Hermilo Start time Last Medication Dose Stop Time Status Admin Amlodipine Besylate 10 MG DAILY 11/14 09 AC (Norvasc) Apixaban 5 MG BID 11/14 09 AC (Eliquis) Ceftazidime 1,000 MG Q12 11/14 09 AC (Fortaz) Divalproex Sodium 1,000 MG BID 11/14 09 AC (Depakote) Docusate Sodium 100 MG DAILY 11/14 09 AC (Colace) Gabapentin 300 MG BID 11/14 09 AC (Neurontin) Hydrochlorothiazide 25 MG DAILY 11/14 09 AC (Hydrodiuril) Lisinopril 20 MG DAILY 11/14 09 AC (Prinivil) Vancomycin HCl 1,000 MG Q12 11/14 0900 UNir Sodium Chloride 250 ML (Normal Saline 0.9%) Omeprazole 40 MG DAILY AC 11/14 07 AC (Prilosec) Morphine Sulfate 4 MG Q4 HRS NEEDED PRN 11/14 0015 AC (Morphine) Oxycodone/ 1 TAB Q4P PRN 11/14 0015 AC Acetaminophen (Percocet) Oxycodone/ 2 TAB Q4P PRN 11/14 0015 AC 11/14 Acetaminophen 0025 (Percocet) Laboratory Tests 11/14/17 0022: Urine Color YEL, Urine Clarity CLEAR, Urine pH 6.0, Ur Specific [place] 1.015, Urine Protein NEG, Urine Ketones NEG, Urine Nitrite NEG, Urine Bilirubin NEG, Urine Urobilinogen 2.0 H, Ur Leukocyte Esterase NEG, Ur Microscopic EXAM NOT REQUIRED, Urine Hemoglobin NEG, Urine Glucose NEG 11/13/17 2231: Anion Gap 12, Estimated GFR > 60, BUN/Creatinine Ratio 24.2, Glucose 107 H, Lactic Acid 1.0, Calcium 7.8 L, Total Bilirubin 0.2, AST 19, ALT 26, Alkaline Phosphatase 84, Total Protein 6.2 L, Albumin 3.1 L, Globulin 3.1, Albumin/ Globulin Ratio 1.0 L, CBC w Diff NO MAN DIFF REQ, RBC 2.93 L, MCV 89.1, MCH 30.2, MCHC 33.9, RDW 15.2 H, MPV 6.7 L, Gran % 65.9, Lymphocytes % 22.3, Monocytes % 7.8, Eosinophils % 3.1, Basophils % 0.9, Absolute Granulocytes 3.8, Absolute Lymphocytes 1.3, Absolute Monocytes 0.4, Absolute Eosinophils 0.2, Absolute Basophils 0 Microbiology 11/13 2254 TRUNK: Culture & Sensitivity - RECD 11/13 2254 TRUNK: Gram Stain - RECD 11/13 2234 BLOOD: Blood Culture - RECD 11/13 2158 BLOOD: Blood Culture - RECD I discussed patient with VASCULAR surgeon Dr. BARRIGA Discussed patient with surgical PA and which Dr. BARRIGA will admit under his service discussed admission with patient patient was administered Vanco Fortaz On examination there is concerns of infection and abscess to the surgical site Diagnostic Imaging: Viewed by Me: CT Scan. Radiology Impression: SEE COMMENTS Initial ED EKG: normal p-waves, normal sinus rhythm Comments: PATIENT: HEAVENLY VAUGHN PRESENT AGE: 62 PATIENT ACCOUNT NO: [id number] : 57 LOCATION: ER ORDERING PHYSICIAN: Maxwell ELIZONDO SERVICE DATE: 11/13/17 EXAM TYPE: CAT - CT PELVIS W IV CONTRAST EXAMINATION: CT PELVIS WITH IV CONTRAST CLINICAL INFORMATION: Necrotizing fasciitis. Evaluate left proximal femur for infection. COMPARISON: CT abdomen pelvis 02/07/2016. TECHNIQUE: Helical scanning was performed with submillimeter collimation through the pelvis with 95 mL of Optiray 320 intravenous contrast. Sagittal and coronal multiplanar 2-D reconstructions were obtained. DLP: 1033.62 mGy-cm FINDINGS: PELVIS: Vascular stent present in the left common iliac vein. There is atherosclerotic vascular calcification of distal aorta and common iliac arteries without stenosis. There is runoff into the femoral arteries bilaterally. There is a stent in the left femoral artery in the left groin. In the left groin there is edema around the left femoral artery and vein extending into the subcutaneous tissue with surgical skin clips over the left groin. There is a small fluid collection adjacent to left femoral artery. Edema and fluid in the left groin soft tissues is likely iatrogenic, however an infection cannot be excluded. The muscles and fat planes throughout the remainder the visualized pelvis and legs are unremarkable. There is no bone destruction. No focal bone lesion. Hip joint is normal. No significant lymphadenopathy. There are few small shotty lymph nodes in the soft tissue in the left groin. Intrapelvic there is no inflammation or fluid collection. Visualized bowel loops unremarkable. Bladder is partially filled. Prostate measures 4.3 cm transverse. IMPRESSION: Vascular stents in the left common iliac vein. Vascular stent in the left femoral artery in the groin. Localized Edema and fluid in the soft tissues around the left femoral artery and left groin likely iatrogenic with surgical skin clips seen over this region. Infection however is not excluded. DICTATED BY: Kyle Tijerina MD DATE/TIME DICTATED:11/13/17 4460 SPECIAL PROJECTS COORDINATOR:JAMIE (Maxwell Marina) Departure Departure Disposition: STILL A PATIENT Condition: Stable Clinical Impression Primary Impression: Surgical site infection Secondary Impressions: Cellulitis Referrals: Unknown (PCP/Family) Departure Forms: Customer Survey General Discharge Information Admission Note Spoke With: Britton Barriga MD Documentation of Exam: Documentation of any treatments & extenuating circumstances including Concerns Regarding Discharge (functional status, medication knowledge or non-compliance, living conditions, etc.) that warrant an admission rather than observation: [ Patient requires IV antibiotics cultures pending pain management] (Maxwell Marina) PA/REGIONAL PROPERTY MANAGER Co-Sign Statement Statement: ED Attending supervision documentation- x I saw and evaluated the patient. I have also reviewed all the pertinent lab results and diagnostic results. I agree with the findings and the plan of care as documented in the PA's/REGIONAL PROPERTY MANAGER's documentation. Vascular surgery site infection [] I have reviewed the ED Record and agree with the PA's/REGIONAL PROPERTY MANAGER's documentation. [] Additions or exceptions (if any) to the PAs/REGIONAL PROPERTY MANAGER's note and plan are summarized below: [] (Phong LION,Soy)
[2017-11-13 22:36] LABS: ABSOLUTE BASOPHIL COUNT 0 /CUMM (0.0-0.2); ABSOLUTE EOSINOPHIL COUNT 0.2 /CUMM (0.0-0.7); ABSOLUTE GRANULOCYTE CT 3.8 /CUMM (1.4-6.5); ABSOLUTE LYMPH COUNT 1.3 /CUMM (1.2-3.4); ABSOLUTE MONOCYTE COUNT 0.4 /CUMM (0.10-0.60); BASOPHIL % 0.9 % (0.0-2.0); EOSINOPHIL % 3.1 % (0-5); GRANULOCYTE % 65.9 % (42.2-75.2); HEMATOCRIT 26.1 % (42-52); MEAN CORPUSCULAR HGB 30.2 PG (27.0-31.0); MEAN CORPUSCULAR HGB CONC 33.9 G/DL (33.0-37.0); MEAN CORPUSCULAR VOLUME 89.1 FL (80.0-94.0); MEAN PLATELET VOLUME 6.7 FL (7.4-10.4); PLATELET COUNT 307 /CUMM (130-400); RBC DISTRIBUTION WIDTH 15.2 % (11.5-14.5); RED BLOOD CELL CT 2.93 /CUMM (4.70-6.10); WHITE BLOOD CELL COUNT 5.8 /CUMM (4.8-10.8)
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
--- NOTE | 2017-11-14 00:10 | CT SCAN REPORT ---
EXAMINATION: CT PELVIS WITH IV CONTRAST CLINICAL INFORMATION: Necrotizing fasciitis. Evaluate left proximal femur for infection. COMPARISON: CT abdomen pelvis 02/07/2016. TECHNIQUE: Helical scanning was performed with submillimeter collimation through the pelvis with 95 mL of Optiray 320 intravenous contrast. Sagittal and coronal multiplanar 2-D reconstructions were obtained. DLP: 1033.62 mGy-cm FINDINGS: PELVIS: Vascular stent present in the left common iliac vein. There is atherosclerotic vascular calcification of distal aorta and common iliac arteries without stenosis. There is runoff into the femoral arteries bilaterally. There is a stent in the left femoral artery in the left groin. In the left groin there is edema around the left femoral artery and vein extending into the subcutaneous tissue with surgical skin clips over the left groin. There is a small fluid collection adjacent to left femoral artery. Edema and fluid in the left groin soft tissues is likely iatrogenic, however an infection cannot be excluded. The muscles and fat planes throughout the remainder the visualized pelvis and legs are unremarkable. There is no bone destruction. No focal bone lesion. Hip joint is normal. No significant lymphadenopathy. There are few small shotty lymph nodes in the soft tissue in the left groin. Intrapelvic there is no inflammation or fluid collection. Visualized bowel loops unremarkable. Bladder is partially filled. Prostate measures 4.3 cm transverse. IMPRESSION: Vascular stents in the left common iliac vein. Vascular stent in the left femoral artery in the groin. Localized Edema and fluid in the soft tissues around the left femoral artery and left groin likely iatrogenic with surgical skin clips seen over this region. Infection however is not excluded.
[2017-11-14 01:23] VITALS: BP 130/70
[2017-11-14 06:11] VITALS: BP 122/58
[2017-11-14 08:02] LABS: ABSOLUTE BASOPHIL COUNT 0 /CUMM (0.0-0.2); ABSOLUTE EOSINOPHIL COUNT 0.3 /CUMM (0.0-0.7); ABSOLUTE GRANULOCYTE CT 3.5 /CUMM (1.4-6.5); ABSOLUTE LYMPH COUNT 1.6 /CUMM (1.2-3.4); ABSOLUTE MONOCYTE COUNT 0.6 /CUMM (0.10-0.60); BASOPHIL % 0.7 % (0.0-2.0); EOSINOPHIL % 4.4 % (0-5); GRANULOCYTE % 58.2 % (42.2-75.2); HEMATOCRIT 26.8 % (42-52); MEAN CORPUSCULAR HGB CONC 33.7 G/DL (33.0-37.0); MEAN CORPUSCULAR VOLUME 88.9 FL (80.0-94.0); MEAN PLATELET VOLUME 6.8 FL (7.4-10.4); PLATELET COUNT 328 /CUMM (130-400); RBC DISTRIBUTION WIDTH 14.8 % (11.5-14.5); RED BLOOD CELL CT 3.01 /CUMM (4.70-6.10); WHITE BLOOD CELL COUNT 5.9 /CUMM (4.8-10.8)
--- NOTE | 2017-11-14 08:40 | PN- Vascular Surgery ---
Surgical Brief Attending Note Brief Attending Note: VASCULAR ATTENDING NOTE: Pt. seen and examined. He is now status post left femoral endarterectomy. A fred was seen last week and noted have some mild discomfort around the wound no fluctuance. He presented to the hospital today with worsening left groin pain and discomfort. Also describes possible fever although patient is afebrile upon exam today and since he's been here in the hospital. Also has noted some drainage from the left groin. 2 lois were removed from the groin line in the emergency room with some spontaneous drainage of 5-10 mL of purulent material per the PA evaluation. Denies claudication or rest pain. PE: Reveals left groin wound with some serous discharge but no fluctuant purlent infection at this time. Bilateral lower extremities are well-perfused. CT reveals no major fluid collection. Some small fluid around the surgical site consistent with postsurgical changes. WBC - WNL A/P 62-year-old man s/p L. BREWING DIRECTOR endarterectomy with bovine pericardial patch with postop left groin wound subcutaneous soft tissue infection- 1.) Would continue IV antibiotics for now- cultures are pending which were sent prior to IV antibiotic administration - low concern for endovascular infection at this time 2.) Continue medical therapy 3.) Please send Hg A!C 4.) Continue to pack wound daily with iodoform packing 5.) Will follow-up blood/wound cultures and determine if patient will need further groin intervention clinically. If wound seems to respond to antibiotics - will monitor. If blood cultures were to become positive or fevers present will consider for washout.
[2017-11-14 14:43] VITALS: BP 120/52
--- NOTE | 2017-11-14 17:15 | Procedure ---
Minor Surgical Procedure Note Date of Procedure: 11/14/17 Procedure Note: Incision and Drainage of L. groin wound Using 4% lidocaine jelly for analgesia a staple and suture was removed from the left groin. Using a sterile Q-tip the wound was probed with no further expression of purulent material. No further need for debridement was noted. Patient will be observed and the wound was dressed with gauze.
[2017-11-14 21:22] VITALS: BP 102/68
[2017-11-15 06:39] VITALS: BP 96/54
[2017-11-15 08:24] LABS: ABSOLUTE BASOPHIL COUNT 0 /CUMM (0.0-0.2); ABSOLUTE EOSINOPHIL COUNT 0.3 /CUMM (0.0-0.7); ABSOLUTE MONOCYTE COUNT 0.4 /CUMM (0.10-0.60); BASOPHIL % 0.5 % (0.0-2.0); EOSINOPHIL % 5.5 % (0-5); GRANULOCYTE % 52.3 % (42.2-75.2); MEAN CORPUSCULAR HGB 29.8 PG (27.0-31.0); MEAN CORPUSCULAR HGB CONC 33.5 G/DL (33.0-37.0); MEAN PLATELET VOLUME 6.7 FL (7.4-10.4); PLATELET COUNT 391 /CUMM (130-400); RBC DISTRIBUTION WIDTH 14.9 % (11.5-14.5); RED BLOOD CELL CT 3.03 /CUMM (4.70-6.10); WHITE BLOOD CELL COUNT 5.7 /CUMM (4.8-10.8)
[2017-11-15 08:25] VITALS: BP 120/64
--- NOTE | 2017-11-15 09:13 | PN- Vascular Surgery ---
Subjective Subjective: No acute overnight events reported. Continues to c/o pain to left groin, tolerated dressing/packing change this am. Denies chest pain, sob, difficulty breathing. Has been oob to bathroom. Denies nausea and vomitting. Objective Vital Signs and I&Os Vital Signs Date Time Temp Pulse Resp B/P B/P Pulse O2 O2 Flow FiO2 Mean Ox Delivery Rate 11/15 0825 52 120/64 11/15 0639 98.1 48 18 96/54 95 11/14 2122 97.9 55 16 102/68 95 Room Air 11/14 1517 Room Air 11/14 1503 Room Air 11/14 1443 98.7 64 20 120/52 95 Room Air Intake & Output 11/15 1600 11/15 0800 11/15 0000 11/14 1600 11/14 0800 11/14 0000 Intake Total 0 1200 500 Output Total 550 500 300 225 300 Balance -550 700 -300 -225 200 Intake, IV 250 500 Intake, Oral 0 950 Number 1 Bowel Movements Output, Urine 550 500 300 225 300 Patient 195 lb 190 lb Weight Weight Estimated Measurement Method Physical Exam: General: Alert and oriented x3, no acute distress Cardiac: RRR, s1s2 Pulm: CTA bilaterally, non-labored respiratory effort Abd: Non-tender, non-distended Extrmeiteis; Neurovascular intact. Dressing to left groin recently changed by Dr. Ross. No surrounding erythema noted, dressing dry at present time. bilateral calves soft and non-tender. Assessment/Plan Assessment/Plan This is a 62 year old male, Hospital day 1 with left groin infection, s/p I&D with iodoform packing -Restart eliquis 5 bid today -Continue home meds -Diet as tolerated -Continue vanc and fortaz, cultures pending -OOB with PT, wbat -Daily packing changes POC discussed with Dr. Ross Core Measures Venous Thromboembolism VTE Risk Factors Surgery No Mechanical VTE Prophylaxis d/t N/A MechProphylax Ordered No VTE Pharm Prophylaxis d/t NA PharmProphylax ordered
--- NOTE | 2017-11-15 09:52 | PN- Vascular Surgery ---
Surgical Brief Attending Note Brief Attending Note: VASCULAR ATTENDING NOTE: 62-year-old male here for follow-up of superficial wound left groin infection. He has been treated with incision and drainage. He has had no fevers and no white count. He continues to have significant discomfort in the left groin. Physical exam reveals his left groin erythema has improved. Still has some discomfort. Wound is packed. Assessment and plan - 1.) await final cultures 2.) continue antibiotics at this time. 3.) PT eval. 4.) Please change packing daily and cover with gauze 5.) Out of bed to chair
[2017-11-15 14:51] VITALS: BP 130/62
[2017-11-15 21:26] VITALS: BP 118/60
[2017-11-16 06:24] VITALS: BP 133/57
--- NOTE | 2017-11-16 08:35 | PN- Vascular Surgery ---
Subjective Subjective: No acute overnight events reported. Continues to c/o pain to left groin, tolerated dressing/packing change this am. Denies chest pain, sob, difficulty breathing. Has been oob to bathroom. Denies nausea and vomitting. Objective Vital Signs and I&Os Vital Signs Date Time Temp Pulse Resp B/P B/P Pulse O2 O2 Flow FiO2 Mean Ox Delivery Rate 11/16 0624 97.5 56 20 133/57 98 Room Air 11/16 0000 94 Room Air 11/15 2126 97.9 55 18 118/60 96 11/15 1451 97.8 62 20 130/62 94 Room Air Intake & Output 11/16 1600 11/16 0800 11/16 0000 11/15 1600 11/15 0800 11/15 0000 Intake Total 450 520 900 0 1200 Output Total 500 300 400 550 500 Balance -50 220 500 -550 700 Intake, IV 150 280 300 250 Intake, Oral 300 240 600 0 950 Number 1 Bowel Movements Output, Urine 500 300 400 550 500 Patient 195 lb Weight Physical Exam: General: Alert and oriented x3 Chest: RRR, clear bilaterally Abd: Non-tender, non-distended Extrmeiteis; Neurovascular intact bilateral calves soft and non-tender. Wd: Packing changed, surrounding erythema and tender, purulent discharge on iodoform - no active drainage, slough along wound edges Assessment/Plan Assessment/Plan 62 year old male, Hospital day 2 with left groin infection, s/p I&D with iodoform packing, afebrile -continue eliquis -Continue vanc and fortaz, cultures pending -OOB with PT, wbat -continue daily packing changes -fu cbc Core Measures Venous Thromboembolism VTE Risk Factors Other No Mechanical VTE Prophylaxis d/t Other No VTE Pharm Prophylaxis d/t Other
--- NOTE | 2017-11-16 10:06 | PN- Vascular Surgery ---
Surgical Brief Attending Note Brief Attending Note: VASCULAR ATTENDING NOTE: 62-year-old male here for follow-up of superficial wound left groin infection. He has been treated with incision and drainage. He has had no fevers and no white count. He continues to have significant discomfort in the left groin. Physical exam reveals his left groin erythema has improved. Still has some discomfort. Wound is packed. Assessment and plan - 1.) Cultures showing latia 2.) continue antibiotics at this time. 3.) PT eval. NEEDS OOB 4.) Please change packing daily and cover with gauze 5.) Likely will need D/C to STR
--- NOTE | 2017-11-16 12:28 | ULTRASOUND REPORT ---
EXAMINATION: US SUPERFICIAL IMAGING, EXTREMITY CLINICAL INFORMATION: 62-year-old male, status post incision and drainage of left groin abscess. For follow-up. COMPARISON: CT of the pelvis done on 11/13/2017. TECHNIQUE: Targeted ultrasound of the left groin. FINDINGS: At the site of the prior incision and drainage, there is a focal avascular hypoechogenicity identified, measures 1.4 x 1.7 x 1.2 cm, seen approximately 2.3 cm deep to the skin surface at left groin, may represent small residual abscess/phlegmon. IMPRESSION: 1.7 cm maximum dimension avascular hypoechogenicity is identified at the site of the prior incision and drainage approximately 2.3 cm deep to the skin surface, may represent residual small abscess/phlegmon.
[2017-11-16 13:36] VITALS: BP 128/62
[2017-11-16 21:03] LABS: ABSOLUTE BASOPHIL COUNT 0 /CUMM (0.0-0.2); ABSOLUTE EOSINOPHIL COUNT 0.3 /CUMM (0.0-0.7); ABSOLUTE GRANULOCYTE CT 2.8 /CUMM (1.4-6.5); ABSOLUTE LYMPH COUNT 1.2 /CUMM (1.2-3.4); ABSOLUTE MONOCYTE COUNT 0.3 /CUMM (0.10-0.60); BASOPHIL % 0.9 % (0.0-2.0); GRANULOCYTE % 60.6 % (42.2-75.2); HEMATOCRIT 28.5 % (42-52); MEAN CORPUSCULAR HGB 29.9 PG (27.0-31.0); MEAN CORPUSCULAR HGB CONC 33.8 G/DL (33.0-37.0); MEAN CORPUSCULAR VOLUME 88.5 FL (80.0-94.0); MEAN PLATELET VOLUME 6.4 FL (7.4-10.4); PLATELET COUNT 525 /CUMM (130-400); RBC DISTRIBUTION WIDTH 14.5 % (11.5-14.5); RED BLOOD CELL CT 3.22 /CUMM (4.70-6.10); WHITE BLOOD CELL COUNT 4.6 /CUMM (4.8-10.8)
[2017-11-16 22:51] VITALS: BP 141/61
[2017-11-17 06:26] VITALS: BP 136/70
[2017-11-17 09:17] LABS: ABSOLUTE BASOPHIL COUNT 0 /CUMM (0.0-0.2); ABSOLUTE EOSINOPHIL COUNT 0.3 /CUMM (0.0-0.7); ABSOLUTE GRANULOCYTE CT 2.2 /CUMM (1.4-6.5); ABSOLUTE LYMPH COUNT 1.5 /CUMM (1.2-3.4); ABSOLUTE MONOCYTE COUNT 0.3 /CUMM (0.10-0.60); BASOPHIL % 0.7 % (0.0-2.0); EOSINOPHIL % 7.1 % (0-5); MEAN CORPUSCULAR HGB CONC 33.8 G/DL (33.0-37.0); MEAN PLATELET VOLUME 6.4 FL (7.4-10.4); PLATELET COUNT 526 /CUMM (130-400); RBC DISTRIBUTION WIDTH 14.3 % (11.5-14.5); RED BLOOD CELL CT 3.26 /CUMM (4.70-6.10); WHITE BLOOD CELL COUNT 4.4 /CUMM (4.8-10.8)
--- NOTE | 2017-11-17 09:40 | PN- Vascular Surgery ---
Surgical Brief Attending Note Brief Attending Note: Wound dressing changed with surgical PA, murky fluid and macerated wound. WBC normal, blood cultures negative and wound cx with skin latia. Continues on IV abx. He is having a lot of pain associated with the wound, would likely benefit from operative debridement and VAC placement. Will d/w Dr Ross and make a plan for possible debridement/
[2017-11-17 14:58] VITALS: BP 140/66
[2017-11-17 22:51] VITALS: BP 130/64
[2017-11-18 06:00] VITALS: BP 124/60
--- NOTE | 2017-11-18 14:45 | Operative Report ---
Operative/Inv Procedure Report Surgery Date: 11/18/17 Name of Procedure: Left groin incision and drainage, pulse lavage, sartorius muscle flap, VAC application Pre-Operative Diagnosis: Breakdown of groin incision Post-Operative Diagnosis: Breakdown of groin incision Estimated Blood Loss: less than 50ml Surgeon/Security Compliance Specialist: Brad Stuart MD Anesthesia: laryngeal mask airway Operative/Procedure Note Note: The patient was brought to the operating room placed on the operating table in the supine position and prepped and draped in the usual sterile fashion. Prior to the start of the procedure, timeout was taken to confirm the patient and procedure, and all were in agreement. I then began by removing the lower lois and sutures in the incision that had dehisced. Half percent Marcaine plain was injected around the entire incision for postoperative pain control. There was a large amount of fat necrosis noted. I probed the wound and it was deeper than initially noted. Necrotic tissue and fat was incised and removed. A pulse lavage with bacitracin antibiotic solution was then performed of the entire wound cavity. At the superior portion of the wound, I was able to feel the lateral aspect of the pulsatile femoral artery. Due to this finding, I was uncomfortable placing a wound VAC, and the tissues were too friable to close primarily. As such I made a lateral flap incision and exposed the sartorius muscle belly. This was mobilized up to the insertion at the anterior superior iliac spine. I transected the tendinous attachment to the spine and mobilized the proximal portion of the sartorius muscle inferiorly. This muscle was then rotated medially to cover the previous wound and exposed artery. This was tacked in place with interrupted Vicryl sutures. A Jere-Monroy drain was then placed through a separate stab incision and placed in the bed of the sartorius muscle belly. The wound was then closed with vertical mattress nylon sutures to approximate the majority of the wound edges after trimming them to remove necrotic tissue. The inferior most portion of the wound was treated with foam placement. Black VAC foam was utilized. This was bridged over the incision as well. This was fixed in place with adhesive tape and the VAC suction instituted. Good suction and seal were achieved. The patient was then brought to the recovery room in stable condition. Findings: Fat necrosis extending into the deeper wound. Discharge Disposition: PACU
--- NOTE | 2017-11-18 15:38 | PN- Vascular Surgery ---
Subjective Subjective: Post op check Awake and alert after surgery Complaining of pain with movement - unchanged from before surgery No other complaints - no nausea Objective Vital Signs and I&Os Vital Signs Date Time Temp Pulse Resp B/P B/P Pulse O2 O2 Flow FiO2 Mean Ox Delivery Rate 11/18 0600 97.4 61 18 124/60 97 11/17 2251 97.7 51 16 130/64 95 Room Air Intake & Output 11/18 0811/18 0000 11/17 1600 11/17 0000 Intake Total 360 600 900 720 780 Output Total 500 1100 1025 350 Balance -140 -500 900 -305 430 Intake, IV 300 600 300 0 300 Intake, Oral 60 600 720 480 Number 1 0 0 Bowel Movements Output, Urine 500 1100 1025 350 Physical Exam: General: alert and oriented times three chest: clear anteriorly bilaterally, RRR Abd: soft, good bs Ext: warm, normosensate, no calf tenderness L groiin - vac in place with good suction, ivett with minimal serosang output <10cc Assessment/Plan Assessment/Plan 62yo male with l groin wound infection s/p thrombectomy now s/p bedside debridement on 11/14 p cultures did not grow anything but skin latia and he has been on abx, today underwent another I and D in the OR with wound vac placement continue antibiotics per dr Stuart wound vac - change every 2-3 days ?wound care consult pain management PT - pt will need to ambulate dc planning ?str Core Measures Venous Thromboembolism VTE Risk Factors Other No Mechanical VTE Prophylaxis d/t Other No VTE Pharm Prophylaxis d/t Other
[2017-11-18 15:40] VITALS: BP 140/78
[2017-11-18 22:00] VITALS: BP 120/60
[2017-11-19 06:42] VITALS: BP 130/66
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
--- NOTE | 2017-11-19 07:54 | PN- Vascular Surgery ---
Subjective Subjective: pt with co a lot of pain in the L groin. No acute events overnight, no fever no flulike illness. He has a normal appetite, he denies any nausea or vomiting. Objective Vital Signs and I&Os Vital Signs Date Time Temp Pulse Resp B/P B/P Pulse O2 O2 Flow FiO2 Mean Ox Delivery Rate 11/19 0642 98.4 54 20 130/66 97 Room Air 11/18 2200 98.5 56 20 120/60 96 Room Air 11/18 1540 97.4 57 20 140/78 97 Room Air Intake & Output 11/19 0811/19 0000 11/18 1600 11/18 0800 11/18 0000 11/17 1600 Intake Total 960 1870 360 600 900 Output Total 640 164 787 1631 Balance 320 1030 -140 -500 900 Intake, IV 660 1570 300 600 300 Intake, Oral 300 300 60 600 Number 1 Bowel Movements Output, 40 40 Drainage Output, Urine 600 226 895 3051 Physical Exam: General: alert and oriented times three chest: clear anteriorly bilaterally, heart:RRR Abd: soft, good bs Ext: warm, normosensate, no calf tenderness L groin - vac in place with good suction, ivett with serosang output, approximately 15cc Mild swelling surrounding the area. No erythema. Mild to moderate tenderness. Assessment/Plan Assessment/Plan 62yo male with L groin wound infection s/p thrombectomy now s/p bedside debridement on 11/14 and postop day #1 status post intraoperative I and D with wound vac placement continue antibiotics per Cynthia Flores and Danya wound vac - change every 2-3 days Out of bed DC IVF Titrate pain medication Continue IVETT drain, monitor output Continue Eliquis Continue Depakote Blood cultures negative: final as of this am. Core Measures Venous Thromboembolism VTE Risk Factors Other No Mechanical VTE Prophylaxis d/t Other No VTE Pharm Prophylaxis d/t Other
--- NOTE | 2017-11-19 12:48 | PN- Vascular Surgery ---
Surgical Brief Attending Note Brief Attending Note: POD 1 s/p L groin debridement, sartorious muscle flap, and VAC application. AF, VSS Doing well this AM, reports pain is improving. Serosanguineous drainage in VAC and LYNN. VAC in place with good seal. Minimal LYNN output. Continue empiric antibiotics and pain control for now. A/P: ABX Pain control Therapy tomorrow, full wt bearing as tolerated Continue Eliquis.
[2017-11-19 13:55] VITALS: BP 118/56
[2017-11-19 22:09] VITALS: BP 130/68
[2017-11-20 06:24] VITALS: BP 134/64
--- NOTE | 2017-11-20 10:10 | PN- Vascular Surgery ---
See Addendum Subjective Subjective: OOB with nursing, now with increased groin pain. no n/v/cp/sob. delia diet. no other complaints Objective Vital Signs and I&Os Vital Signs Date Time Temp Pulse Resp B/P B/P Pulse O2 O2 Flow FiO2 Mean Ox Delivery Rate 11/20 0624 98.4 60 20 134/64 95 11/19 2209 98.3 60 18 130/68 97 Room Air 11/19 1355 98.2 62 18 118/56 94 Room Air 11/19 1210 Room Air Intake & Output 11/20 1600 11/20 0800 11/20 0000 11/19 1600 11/19 0800 11/19 0000 Intake Total 819 149 0239 1870 Output Total 895 620 525 640 840 Balance -895 -70 -63 395 1030 Intake, IV 735 1570 Intake, Oral 550 462 300 300 Output, 20 20 25 40 40 Drainage Output, Urine 875 600 500 600 800 Physical Exam: gen-nad card-s1s2 pulm- ctab abd- obese, soft nt ext- right dp pulse, left pt signal. calves soft nt. multiple well healed incisions bl le. ivett l groin, min serosang. wv to good suction l groin. minimally ttp at left groin Assessment/Plan Assessment/Plan A- POD2 sp I&D L groin with wv placement, stable. P- dc planning- has bed at [facility], going tomorrow due to holiday prn pain meds- discussed importance of PO meds with pt oob, ambulate cont eliquis ?dc ivett ?wv change today vs wait for tomorrow (may need w-d for transfer) will dw attending Core Measures Venous Thromboembolism VTE Risk Factors Other No Mechanical VTE Prophylaxis d/t Other No VTE Pharm Prophylaxis d/t Other
[2017-11-20 14:16] VITALS: BP 110/54
[2017-11-20 22:37] VITALS: BP 132/64
--- NOTE | 2017-11-21 05:49 | Patient Discharge Instructions ---
Discharge Instructions General Discharge Information You were seen/treated for: infection of left groin You had these procedures: incision and drainage of left groin with wound vac dressing placement Watch for these problems: fever>101, worsening pain despite pain meds, purulent drainge from wound, redness surrounding wound Other wound care: Wound vac to left groin, change every other day Diet Continue normal diet: Yes Activity Activity Self Limited: Yes Acute Coronary Syndrome Inclusion Criteria At DC or during hospital stay patient has or had the following: ACS DIAGNOSIS No Discharge Core Measures Meds if any: Prescribed or Continued at Discharge Meds if any: NOT Prescribed or Continued at Discharge Congestive Heart Failure Inclusion Criteria At DC or during hospital stay patient has or had the following: CHF DIAGNOSIS No Discharge Core Measures Meds if any: Prescribed or Continued at Discharge Meds if any: NOT Prescribed or Continued at Discharge Cerebrovascular accident Inclusion Criteria At DC or during hospital stay patient has or had the following: CVA/TIA Diagnosis No Discharge Core Measures Meds if any: Prescribed or Continued at Discharge Meds if any: NOT Prescribed or Continued at Discharge Venous thromboembolism Inclusion Criteria VTE Diagnosis No VTE Type NONE VTE Confirmed by (Test) NONE Discharge Core Measures - Per Current guidelines, there needs to be overlap - treatment for the first 5 days of Warfarin therapy. - If discharged on Warfarin prior to 5 days of - overlap therapy, the patient will need to be - assessed for post discharge needs including - *Post discharge parental anticoagulation - *Warfarin and/or parental anticoagulation education - *Follow up date to check INR post discharge At least 5 days overlap therapy as Inpatient No Meds if any: Prescribed or Continued at Discharge Note: Overlap Therapy is Warfarin and Anticoagulant Meds if any: NOT Prescribed or Continued at Discharge
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
[2017-11-21 06:57] VITALS: BP 150/68
--- NOTE | 2017-11-21 08:08 | PN- Vascular Surgery ---
Subjective Subjective: POD#3 S/P I&D LEFT GROIN WOUND W/WOUND VAC PLACEMENT SITTING UP IN BED EATING BREAKFST FEELING MUCH BETTER NO PAIN DENIES CP, SOB, TOLERATING DIET NO N+V Objective Vital Signs and I&Os Vital Signs Date Time Temp Pulse Resp B/P B/P Pulse O2 O2 Flow FiO2 Mean Ox Delivery Rate 11/21 0657 97.6 56 18 150/68 95 11/20 2237 97.8 59 16 132/64 95 Room Air 11/20 1416 97.5 62 18 110/54 95 Room Air Intake & Output 07/ 1600 07 0800 11/21 0000 11/20 1600 11/20 0800 11/20 0000 Intake Total 242 215 8808 550 Output Total 605 1010 565 895 620 Balance -405 -500 485 -895 -70 Intake, IV 270 250 Intake, Oral 200 240 800 550 Number 0 2 0 Bowel Movements Output, 5 10 15 20 20 Drainage Output, Urine 600 1000 550 875 600 Physical Exam: CV: RRR LUNGS: CLEADR ABD: SOFT, +BS EXT: WOUND VAC IN PLACE MINIMAL OUTPUT VAC AND LYNN LEFT LE DISTAL CMS UNCHANGED Assessment/Plan Assessment/Plan VASCULAR STABLE PLAN SNF TODAY PROBABLE D/C IV ABX D/C LYNN/WOUND VAC AT D/C WITH WET TO DRY DRESSING TO PLACE WOUND UPON ARRIVAL AT SNF Core Measures Venous Thromboembolism VTE Risk Factors Other No Mechanical VTE Prophylaxis d/t Other No VTE Pharm Prophylaxis d/t Other
[2017-11-21] MEDS ORDERED: DOCUSATE SODIU100 M3 PO (10:34)
[2017-11-21] MEDS ORDERED: AUGMENTIN 875-1 EACH PO (10:35)
[2017-11-21] MEDS ORDERED: MS CONTIN15 M3 PO (10:35)
[2017-11-21 11:57] VITALS: BP 150/68
== END 2017-11-21 12:30 | DRG 711 ==
LOC: ERH 19:51 → ERHI 21:56 → 2NB 21:56 → ENRESERV 11-14 00:32 → 2NB 11-14 01:17 → ENTRNSPT 11-18 15:04 → EDTRNSPTSTS 11-18 15:24 → EDTRNSPT 11-18 15:24 → CMPTRNSPT 11-18 16:18 → ENPENDDIS 11-21 10:38 → 2NB 11-21 12:30
PROVIDERS: Physician Assistant; Physician Assistant Surgical
PROC: 0J9C0ZZ Drainage of Pelvic Region Subcutaneous Tissue and Fascia, Open Approach (ICD-10-PCS; 2017-11-14)
PROC: 0KXR0ZZ Transfer Left Upper Leg Muscle, Open Approach (ICD-10-PCS; principal; 2017-11-18)
PROC: 0J9C0ZZ Drainage of Pelvic Region Subcutaneous Tissue and Fascia, Open Approach (ICD-10-PCS; principal; 2017-11-18)
DX: T81.4XXA Infection following a procedure, initial encounter (principal); T81.32XA Disruption of internal operation (surgical) wound, not elsewhere classified, initial encounter; E78.5 Hyperlipidemia, unspecified; J45.909 Unspecified asthma, uncomplicated; K21.9 Gastro-esophageal reflux disease without esophagitis; I73.9 Peripheral vascular disease, unspecified; I10 Essential (primary) hypertension; Y83.8 Other surgical procedures as the cause of abnormal reaction of the patient, or of later complication, without mention of misadventure at the time of the procedure; Z88.1 Allergy status to other antibiotic agents
CPT/HCPCS: 2NBP; ERO; 36592; 76881; 81003; 82436; 87040; 87070; 93005; 93010; 96365; 96366; J0131; J0713; J3370; J3490; J7040; J7042

== ENCOUNTER 2017-11-24 21:52 | Inpatient (IN) | payer OTHER ==
[~2017-11-24] VITALS: Ht 170.2 cm; Wt 94.5 kg
[~2017-11-24 21:52] MED LIST changes: +AUGMENTIN 875-1 EACH PO; +DOCUSATE SODIU100 M3 PO; +MS CONTIN15 M3 PO
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
[2017-11-24 22:57] LABS: ABSOLUTE BASOPHIL COUNT 0.2 /CUMM (0.0-0.2); ABSOLUTE EOSINOPHIL COUNT 0.4 /CUMM (0.0-0.7); ABSOLUTE GRANULOCYTE CT 3.5 /CUMM (1.4-6.5); ABSOLUTE LYMPH COUNT 1.7 /CUMM (1.2-3.4); ABSOLUTE MONOCYTE COUNT 0.5 /CUMM (0.10-0.60); BASOPHIL % 2.7 % (0.0-2.0); EOSINOPHIL % 5.8 % (0-5); GRANULOCYTE % 56.1 % (42.2-75.2); HEMATOCRIT 26.4 % (42-52); MEAN CORPUSCULAR HGB 30.2 PG (27.0-31.0); MEAN CORPUSCULAR HGB CONC 34.3 G/DL (33.0-37.0); MEAN PLATELET VOLUME 6.7 FL (7.4-10.4); PLATELET COUNT 341 /CUMM (130-400); RED BLOOD CELL CT 2.99 /CUMM (4.70-6.10); WHITE BLOOD CELL COUNT 6.2 /CUMM (4.8-10.8)
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
[2017-11-25 01:28] VITALS: BP 125/61
[2017-11-25 07:00] VITALS: BP 110/54
--- NOTE | 2017-11-25 07:34 | PN- Housestaff ---
Bryan Elizondo 11/25/17 0734: Subjective Follow-up For: LLE swelling, MELANIE Subjective: Pt seen and examined at bedside. Pt complains of pain to LLE, asks for 2 tabs of percocet instead of one. States that percocet works better for him than morphine , and that acetaminophen will not control his pain. Pt states he was recently in hospital for abscess drainage; has been in [facility] prior to admission. Denies fevers /chills/night sweats/shortness of breath/chest pain/abdominal pain/urinary symptoms Review of Systems Constitutional: Reports: see HPI. Objective Last 24 Hrs of Vital Signs/I&O Vital Signs Date Time Temp Pulse Resp B/P B/P Pulse O2 O2 Flow FiO2 Mean Ox Delivery Rate 11/25 1425 97.8 62 18 100/58 93 Room Air 11/25 0700 97.7 61 18 110/54 97 11/25 0128 97.6 70 18 125/61 98 11/25 0101 98.1 63 17 101/55 96 Room Air 11/24 2154 98.4 66 16 107/53 97 Room Air Intake & Output 11/25 1600 11/25 0800 11/25 0000 Intake Total 1300 240 Output Total 1100 400 Balance 200 -160 Intake, IV 500 Intake, Oral 800 240 Number 1 Bowel Movements Output, Urine 1100 400 Patient 208 lb 195 lb Weight Weight Bed scale Measurement Method Physical Exam General Appearance: Alert, Oriented X3, No Acute Distress Skin: LLE calf swelling, redness Skin Temp/Moisture Exam: Warm/Dry Cardiovascular: Regular Rate, Normal S1, Normal S2 Lungs: Clear to Auscultation, Normal Air Movement Abdomen: Soft, No Tenderness Neurological: Sensation Intact Extremities: tender, swollen left lower extremity, surgical scars L+RLE Vascular: Pulses Symmetrical Assessment/Plan Assessment: Mr Nicholson is a 62-year-old gentleman with past mental history of hypertension peripheral vascular disease hyperlipidemia asthma and GERD, recent L femoropopliteal graft thrombolysis x2 on November 04; and I+D on November 18 for surgical site infection, presents with LLE swelling and pain. Admitted for R/O DVT; MELANIE #R/O DVT, left lower extremity swelling dressings. #MELANIE -BUN/creatinine upon admission 57/2.6, trended down to 54/2.2 on November 25. We will continue to trend. -Patient is on IV fluid hydration. ask for more Percocet, will hold off for now compartment syndrome #Left wound I&D will renally dose his Augmentin and restart inpatient. Day 1 on 11/25/2017 IV access DVT prophylaxis Regular diet Full code Problem List: 1. Acute kidney injury Pain Ratin Pain Location: Left lower extremity Pain Goal: Pain 7 or less Pain Plan: Percocet, morphine, Tylenol as needed Tomorrow's Labs & Rationales: DAINA Nima Meyrejj 11/25/17 1230: Attending MD Review Statement Attending Statement Attending MD Statement: examined this patient, discuss w/resident/PA/SEISMOGRAPH RECORDER, agreed w/resident/PA/SEISMOGRAPH RECORDER, discussed with family, reviewed EMR data (avail), discussed with nursing, discussed with case mgmt, reviewed images, amended to note Attending Assessment/Plan: Mr. Nicholson is a 62-year-old gentleman with past medical history significant for hypertension, peripheral vascular disease, hyper lipidemia, asthma and GERD who comes in with left lower extremity pain and swelling on admission. Patient has a left femoropopliteal graft and had a thrombolysis 2 done of occluded graft on December 04 and . He had a surgical site infection and was admitted to [place] on November 18, had an incision and drainage done and was discharged to [place] on Eliquis and Augmentin, now comes back with left lower extremity pain and swelling. Reports chills and subjective fevers. Reports normal appetite and denies any chest pain, shortness of breath or palpitations. Patient labs with creatinine 2.6>>2.2 Patient admitted here for acute kidney injury 2/2 IVVD or rule out other causes. Nephrology consult. Gentle hydration. Vascular surgery appreciated. Recommend to continue anticoagulation. Wound Vac as per surgical team. Complete antibiotic course. Check CPK levels. If swelling get worse then consider CT femur to rule out compartment syndrome. USG negative for DVT.
--- NOTE | 2017-11-25 08:07 | Event Note ---
Event Note Event Note: Mr. Nicholson is a 62-year-old gentleman with past medical history significant for hypertension, peripheral vascular disease, hyper lipidemia, asthma and GERD who comes in with left lower extremity pain and swelling that started yesterday. Patient has a left femoropopliteal graft and had a thrombolysis 2 done of occluded graft on December 04 and . He had a surgical site infection and was admitted to [place] on November 18, had an incision and drainage done and was discharged to [place] on Eliquis and Augmentin, now comes back with left lower extremity pain and swelling starting yesterday afternoon. He said he had the pain after surgery and it never went away but now it's worse than before. Has been taking Percocet with relief. He also had a wound VAC on which was removed yesterday. Reports chills and subjective fevers. Reports normal appetite and denies any chest pain, shortness of breath or palpitations. Vitals on admission were temperature 98.4, heart rate 66, respiratory rate 16, BP 107/53 and O2 sats 97% on room air. Labs were significant for creatinine of 2.6(baseline around 1). Problem list; 1. Left lower extremity swelling 2. MELANIE 3. Chronic medical conditions - Observe the patient on general medical floor for 24-48 hours. - Lower extremity Doppler to rule out DVT. - Vascular surgery consult; recommends continuing Eliquis, no surgical intervention required. - PT evaluation. - Patient received 1 L of normal saline in the ER, hold off on further IV fluid. - Follow urine lites, FeNa - Wound VAC tomorrow - Pain management - Patient does not have a list of his medications, we will confirm with the pharmacy and resume medications. - Patient was also discharged home on Augmentin to be taken for 3 days, unsure if he completed the course. DVT prophylaxis; patient is on Eliquis Patient is full code
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
[2017-11-25 09:02] LABS: ABSOLUTE BASOPHIL COUNT 0.1 /CUMM (0.0-0.2); ABSOLUTE EOSINOPHIL COUNT 0.4 /CUMM (0.0-0.7); ABSOLUTE LYMPH COUNT 1.4 /CUMM (1.2-3.4); ABSOLUTE MONOCYTE COUNT 0.4 /CUMM (0.10-0.60); EOSINOPHIL % 7.1 % (0-5); HEMATOCRIT 26.4 % (42-52); MEAN CORPUSCULAR HGB 30.3 PG (27.0-31.0); MEAN CORPUSCULAR HGB CONC 34.6 G/DL (33.0-37.0); MEAN CORPUSCULAR VOLUME 87.6 FL (80.0-94.0); MEAN PLATELET VOLUME 6.1 FL (7.4-10.4); PLATELET COUNT 350 /CUMM (130-400); RBC DISTRIBUTION WIDTH 14.6 % (11.5-14.5); RED BLOOD CELL CT 3.02 /CUMM (4.70-6.10); WHITE BLOOD CELL COUNT 5.2 /CUMM (4.8-10.8)
--- NOTE | 2017-11-25 11:55 | ULTRASOUND REPORT ---
EXAMINATION: US TRIPLEX LOWER EXTREMITY, LEFT CLINICAL INFORMATION: Lower extremity pain and edema COMPARISON: None TECHNIQUE: Color-flow triplex imaging with spectral analysis and compression Doppler were performed on the lower extremity. FINDINGS: Respiratory variation, normal compression and augmented flow are noted throughout the lower extremity. The visualized common femoral vein, superficial femoral vein, profunda femoral vein, popliteal vein and midcalf peroneal and posterior tibial venous segments show no evidence of deep venous thrombosis. There is no Wyman's cyst. IMPRESSION: No evidence of deep venous thrombosis involving the lower extremity.
[2017-11-25 14:25] VITALS: BP 100/58
[2017-11-25 22:19] VITALS: BP 140/50
[2017-11-26 06:27] VITALS: BP 112/56
--- NOTE | 2017-11-26 08:13 | PN- Housestaff ---
See Addendum Subjective Follow-up For: Left lower extremity swelling, MELANIE Subjective: Patient seen and examined at bedside. Patient states that he was still in pain overnight, however does state that he has been ambulating. Patient states numbness to the lateral aspect of the femur, which has been going on since the wound I&D. Patient's states calf is less swollen, less erythematous, less tender. Patient denies back pain, denies hematuria. Patient also denies fevers/ chills/night sweats/chest pain/abdominal pain. Review of Systems Constitutional: Reports: see HPI. Objective Last 24 Hrs of Vital Signs/I&O Vital Signs Date Time Temp Pulse Resp B/P B/P Pulse O2 O2 Flow FiO2 Mean Ox Delivery Rate 11/26 0627 98.3 73 18 112/56 95 Room Air 11/25 2219 97.8 83 17 140/50 97 Room Air 11/25 1425 97.8 62 18 100/58 93 Room Air Intake & Output 11/26 1600 11/26 0800 11/26 0000 Intake Total 800 1400 Output Total 925 1150 Balance -125 250 Intake, IV 800 800 Intake, Oral 600 Number 1 Bowel Movements Output, Urine 925 1150 Physical Exam General Appearance: Alert, Oriented X3, Cooperative, No Acute Distress Skin: erythema improved LLE; wound to L inguinal region, dressing clean/dry/ intact; Surgical scars to b/l lower extremities Skin Temp/Moisture Exam: Warm/Dry Cardiovascular: Regular Rate, Normal S1, Normal S2 Lungs: Normal Air Movement, wheeze b/l apices; bases clear Abdomen: Soft, No Tenderness Neurological: decreased sensation per patient to lateral aspect of L femur, unchanged since wound I+D, strength 4/5 LLE; 5/5 L foot Extremities: Normal Pulses, LLE swelling diminished; LLE glass unloading equipment tender on calf/ femur region Current Medications: Current Medications Sig/Hermilo Start time Last Medication Dose Route Stop Time Status Admin Acetaminophen 650 MG Q6P PRN 11/25 0300 AC 11/25 PO 0835 Amoxicillin/ 500 MG Q12H 11/25 1800 AC 11/26 Clavulanate Potassium PO 0541 Amoxicillin/ 500 MG Q12 11/25 1408 DC 11/25 Clavulanate Potassium PO 1726 Apixaban 5 MG BID 11/25 0900 AC 11/26 PO 0740 Divalproex Sodium 1,000 MG BID 11/25 899 AC 11/26 PO 0740 Gabapentin 300 MG BID 11/25 899 AC 11/26 PO 0741 Morphine Sulfate 2 MG Q4P PRN 11/25 299 AC 11/26 IV 0734 Omeprazole 20 MG DAILY AC 11/25 699 AC 11/26 PO 0541 Oxycodone/ 1 TAB Q6P PRN 11/25 299 AC 11/26 Acetaminophen PO 0541 Sodium Chloride 1,000 ML Q10H 11/25 944 AC 11/26 IV 0548 Last 24 Hrs of Lab/Avtar Results Last 24 Hrs of Labs/Mics: Laboratory Tests 11/26/17 0613: Sodium Pending, Potassium Pending, Chloride Pending, Carbon Dioxide Pending, Anion Gap Pending, BUN Pending, Creatinine Pending, BUN/Creatinine Ratio Pending , Creatine Kinase Pending, CBC w Diff Pending, WBC Pending, RBC Pending, Hgb Pending, Hct Pending, MCV Pending, MCH Pending, MCHC Pending, RDW Pending, Plt Count Pending, MPV Pending 11/25/17 0854: CBC w Diff NO MAN DIFF REQ, RBC 3.02 L, MCV 87.6, MCH 30.3, MCHC 34.6, RDW 14.6 H, MPV 6.1 L, Gran % 58.0, Lymphocytes % 27.1, Monocytes % 6.8, Eosinophils % 7.1 H, Basophils % 1.0, Absolute Granulocytes 3.0, Absolute Lymphocytes 1.4, Absolute Monocytes 0.4, Absolute Eosinophils 0.4, Absolute Basophils 0.1 11/25/17 0821: Hemoglobin A1c 6.6 H Assessment/Plan Assessment: Mr Nicholson is a 62-year-old gentleman with past mental history of hypertension peripheral vascular disease hyperlipidemia asthma and GERD, recent L femoropopliteal graft thrombolysis x2 on November 04; and I+D on November 18 for surgical site infection, presents with LLE swelling and pain. Admitted for R/O DVT; MELANIE #R/O DVT, left lower extremity swellingnegative for DVT per ultrasound dressings. #MELANIE -BUN/creatinine upon admission 57/2.6, trended down to 54/2.2 on November 25. We will continue to trend. -Patient is on IV fluid hydration. ask for more Percocet, will hold off for now compartment syndrome #Left wound I&D will renally dose his Augmentin and restart inpatient. Day 2 on 11/26/2017 IV access DVT prophylaxis Regular diet Full code Problem List: 1. MELANIE (acute kidney injury) Pain Ratin Pain Location: Left lower extremity Pain Goal: Pain 7 or less Pain Plan: Percocet, Tylenol as needed Tomorrow's Labs & Rationales: BEP to trend BUN/creatinine
[2017-11-26 08:26] LABS: ABSOLUTE BASOPHIL COUNT 0 /CUMM (0.0-0.2); ABSOLUTE EOSINOPHIL COUNT 0.3 /CUMM (0.0-0.7); ABSOLUTE GRANULOCYTE CT 2.2 /CUMM (1.4-6.5); ABSOLUTE LYMPH COUNT 1.4 /CUMM (1.2-3.4); ABSOLUTE MONOCYTE COUNT 0.4 /CUMM (0.10-0.60); BASOPHIL % 0.8 % (0.0-2.0); EOSINOPHIL % 5.9 % (0-5); GRANULOCYTE % 52.1 % (42.2-75.2); HEMATOCRIT 23.5 % (42-52); MEAN CORPUSCULAR HGB 29.8 PG (27.0-31.0); MEAN CORPUSCULAR HGB CONC 33.8 G/DL (33.0-37.0); MEAN CORPUSCULAR VOLUME 88.1 FL (80.0-94.0); PLATELET COUNT 294 /CUMM (130-400); RBC DISTRIBUTION WIDTH 15.2 % (11.5-14.5); RED BLOOD CELL CT 2.67 /CUMM (4.70-6.10); WHITE BLOOD CELL COUNT 4.3 /CUMM (4.8-10.8)
[2017-11-26 14:50] VITALS: BP 118/56
--- NOTE | 2017-11-26 14:50 | PN- Vascular Surgery ---
Surgical Brief Attending Note Brief Attending Note: VASCULAR ATTENDING NOTE: Pt. stable now HD #2 admitted for MELANIE. + Mild pain. sCr now @ baseline. PE: AF/VSS Ext: Decreased edema, groin wound c/d/i A/P Will re-apply VAC 11/27 Cont. dry dressing to L. groin today Stable from wound/vasc. for discharge
[2017-11-26 18:53] LABS: ABSOLUTE BASOPHIL COUNT 0.1 /CUMM (0.0-0.2); ABSOLUTE EOSINOPHIL COUNT 0.2 /CUMM (0.0-0.7); ABSOLUTE GRANULOCYTE CT 2.3 /CUMM (1.4-6.5); ABSOLUTE LYMPH COUNT 1.6 /CUMM (1.2-3.4); ABSOLUTE MONOCYTE COUNT 0.3 /CUMM (0.10-0.60); BASOPHIL % 1.2 % (0.0-2.0); EOSINOPHIL % 4.8 % (0-5); GRANULOCYTE % 51.6 % (42.2-75.2); HEMATOCRIT 24.3 % (42-52); MEAN CORPUSCULAR HGB 30.2 PG (27.0-31.0); MEAN CORPUSCULAR HGB CONC 34.3 G/DL (33.0-37.0); MEAN PLATELET VOLUME 6.9 FL (7.4-10.4); PLATELET COUNT 291 /CUMM (130-400); RBC DISTRIBUTION WIDTH 15.5 % (11.5-14.5); RED BLOOD CELL CT 2.76 /CUMM (4.70-6.10); WHITE BLOOD CELL COUNT 4.5 /CUMM (4.8-10.8)
[2017-11-26 21:04] VITALS: BP 122/56
[2017-11-27 06:26] VITALS: BP 133/68
--- NOTE | 2017-11-27 08:57 | PN- Housestaff ---
See Addendum Subjective Follow-up For: LLE Swelling, MELANIE Subjective: Patient seen and examined at bedside. Patient states uneventful night, states that the pain is improving in his lower extremity. Patient states that he does not have any urinary symptoms, states that he has been ambulating more. Patient denies fevers/chills/systemic signs. Denies complaints at this time Review of Systems Constitutional: Reports: see HPI. Objective Last 24 Hrs of Vital Signs/I&O Vital Signs Date Time Temp Pulse Resp B/P B/P Pulse O2 O2 Flow FiO2 Mean Ox Delivery Rate 11/27 0813 Room Air 11/27 0626 98.2 61 18 133/68 96 11/26 2104 97.6 67 18 122/56 96 Room Air 11/26 1450 98.3 59 18 118/56 94 Room Air Intake & Output 11/27 1600 11/27 0800 11/27 0000 Intake Total 600 Output Total 1525 Balance -925 Intake, Oral 600 Output, Urine 1525 Physical Exam General Appearance: Alert, Oriented X3, Cooperative, No Acute Distress Skin Temp/Moisture Exam: Warm/Dry Cardiovascular: Regular Rate, Normal S1, Normal S2 Lungs: Clear to Auscultation, Normal Air Movement Abdomen: Soft, No Tenderness Neurological: Strength at 5/5 X4 Ext Extremities: No Edema, LLE swelling/erythema decreased since admission Current Medications: Current Medications Sig/Hermilo Start time Last Medication Dose Route Stop Time Status Admin Acetaminophen 650 MG .STK-MED ONE 11/26 0847 DC PO 11/26 0848 Acetaminophen 650 MG Q6P PRN 11/25 0300 AC 11/27 PO 0810 Amoxicillin/ 500 MG Q12H 11/25 1800 AC 11/27 Clavulanate Potassium PO 11/27 2300 0519 Apixaban 5 MG BID 11/25 899 AC 11/27 PO 0810 Divalproex Sodium 1,000 MG BID 11/25 899 AC 11/27 PO 0810 Gabapentin 300 MG BID 11/25 899 AC 11/27 PO 0810 Morphine Sulfate 2 MG Q4P PRN 11/25 0300 AC 11/26 IV 1949 Omeprazole 20 MG DAILY AC 11/25 0700 AC 11/27 PO 0519 Oxycodone/ 1 TAB Q6P PRN 11/25 0300 AC 11/27 Acetaminophen PO 0430 Patient Medication 1 ED ONE ONE 11/26 1715 [facility] ED 11/26 1716 Sodium Chloride 1,000 ML Q10H 11/25 0945 [place] 11/26 IV 0548 Last 24 Hrs of Lab/Avtar Results Last 24 Hrs of Labs/Mics: Laboratory Tests 11/26/17 1800: CBC w Diff NO MAN DIFF REQ, RBC 2.76 L, MCV 88.0, MCH 30.2, MCHC 34.3, RDW 15.5 H, MPV 6.9 L, Gran % 51.6, Lymphocytes % 36.3, Monocytes % 6.1, Eosinophils % 4.8, Basophils % 1.2, Absolute Granulocytes 2.3, Absolute Lymphocytes 1.6, Absolute Monocytes 0.3, Absolute Eosinophils 0.2, Absolute Basophils 0.1 Assessment/Plan Assessment: Mr Nicholson is a 62-year-old gentleman with past mental history of hypertension peripheral vascular disease hyperlipidemia asthma and GERD, recent L femoropopliteal graft thrombolysis x2 on November 04; and I+D on November 18 for surgical site infection, presents with LLE swelling and pain. Admitted for R/O DVT; MELANIE #R/O DVT, left lower extremity swellingnegative for DVT per ultrasound dressings. consider femur CT to r/o #MELANIE - resolving -BUN/creatinine upon admission 57/2.6, trended down to 54/2.2 on November 25; 34/1.2 on 11/26; will f/u today. -CPK neg -Patient is on IV fluid hydration. more Percocet, will hold off for now #Left wound I&D will renally dose his Augmentin and restart inpatient. Final day (3) on 2017 IV access DVT prophylaxis Regular diet Full code Likely discharge today to [facility] Problem List: 1. Acute kidney injury Pain Ratin Pain Location: LLE Pain Goal: Pain 4 or less Pain Plan: Pain pathway, off IV meds Tomorrow's Labs & Rationales: na Discharge Plan Discharge Disposition: [facility] Stable for Discharge? Yes Anticipated Discharge (Day): today
[2017-11-27 09:15] LABS: ABSOLUTE BASOPHIL COUNT 0 /CUMM (0.0-0.2); ABSOLUTE EOSINOPHIL COUNT 0.2 /CUMM (0.0-0.7); ABSOLUTE GRANULOCYTE CT 2.4 /CUMM (1.4-6.5); ABSOLUTE LYMPH COUNT 1.5 /CUMM (1.2-3.4); ABSOLUTE MONOCYTE COUNT 0.3 /CUMM (0.10-0.60); BASOPHIL % 1.1 % (0.0-2.0); EOSINOPHIL % 4.1 % (0-5); GRANULOCYTE % 53.5 % (42.2-75.2); HEMATOCRIT 25.2 % (42-52); MEAN CORPUSCULAR HGB 30.2 PG (27.0-31.0); MEAN CORPUSCULAR HGB CONC 34.2 G/DL (33.0-37.0); MEAN CORPUSCULAR VOLUME 88.4 FL (80.0-94.0); MEAN PLATELET VOLUME 6.6 FL (7.4-10.4); PLATELET COUNT 286 /CUMM (130-400); RBC DISTRIBUTION WIDTH 14.8 % (11.5-14.5); RED BLOOD CELL CT 2.85 /CUMM (4.70-6.10); WHITE BLOOD CELL COUNT 4.4 /CUMM (4.8-10.8)
--- NOTE | 2017-11-27 09:40 | Discharge Summary ---
Visit Information Visit Dates Admission Date: 11/25/17 Discharge Date: 11/27/2017 Hospital Course Course Attending Physician: Tamara Meyer MD Primary Care Physician: Unknown Hospital Course: Mr. Nicholson is a 62-year-old gentleman with past medical history significant for hypertension, peripheral vascular disease, hyper lipidemia, asthma and GERD who comes in with left lower extremity pain and swelling that started yesterday. Patient has a left femoropopliteal graft and had a thrombolysis 2 done of occluded graft on November 04 and . He had a surgical site infection and was admitted to [facility] on November 18, had an incision and drainage done and was discharged to [facility] on Eliquis and Augmentin, now comes back with left lower extremity pain and swelling starting yesterday afternoon. He said he had the pain after surgery and it never went away but now it's worse than before. Has been taking Percocet with relief. He also had a wound VAC on which was removed yesterday. Reports chills and subjective fevers. Reports normal appetite and denies any chest pain, shortness of breath or palpitations. Vitals on admission were temperature 98.4, heart rate 66, respiratory rate 16, BP 107/53 and O2 sats 97% on room air. Labs were significant for creatinine of 2.6 (baseline around 1). Problem list; 1. Left lower extremity swelling 2/2 PVD 2. MELANIE, resolved 3. PMH including HTN, HLD, Asthma, GERD, PVD On admission, patient underwent lower extremity Doppler to rule out DVT, and was continued on home medications of Augmentin for last admission to complete a total 3 day course. Vascular surgery was consulted and recommended to continue Eliquis 5 mg twice daily, without any surgical intervention required at this point. Wound VAC was replaced prior to discharge, and PT evaluation recommended home services rather than STR. Wound VAC would need to be changed on every Mon, Wed, and Fri, to 125mmHg. Patient is not nutritionally compromised. DVT prophylaxis; patient is on Eliquis Regular Diet Patient is full code Allergies: Coded Allergies: ciprofloxacin (From CIPRO) (affected kidneys 02/07/16) Pertinent Lab Results: SERVICE DATE: 11/25/17-699 EXAM TYPE: US - US-DUPLEX VENOUS EXTREM UNI IMPRESSION: No evidence of deep venous thrombosis involving the lower extremity. Disposition Summary Disposition Principal Diagnosis: 1. Left lower extremity swelling 2/2 PVD 2. MELANIE, resolved 3. PMH including HTN, HLD, Asthma, GERD, PVD Additional Diagnosis: as above Discharge Disposition: home health services Discharge Instructions General Discharge Information Code Status: Full Code Patient's Diet: regular diet Patient's Activity: as tolerated w/ wound VAC Follow-Up Instructions/Appts: - Please follow up with your primary care physician within 1-2 weeks of discharge. Inform your primary care physician of this admission to [facility]. - Continue your current medications per discharge instructions. - Please watch for these problems: Fever, Chills, Nausea, Vomiting, Shortness of Breath, Productive Cough, Chest Pain/Discomfort, Abdominal Pain, Active Bleeding or Bloody urine/stool. Medications at Discharge Discharge Medications: Stop taking the following medications: Lisinopril/Hydrochlorothiazide (Lisinopril-Hctz 20-25 MG Tab) 20 MG-25 MG TABLET ORAL DAILY Amlodipine Besylate (Amlodipine Besylate) 10 MG TABLET ORAL DAILY Amoxicillin/Potassium Clav (Augmentin 875-125 Tablet) 875 MG-125 MG TABLET ORAL TWICE DAILY Qty = 6 Continue taking these medications: Gabapentin (Gabapentin) 300 MG CAPSULE 1 Capsule ORAL TWICE DAILY Comments: Last Taken:11/28/17 Time:9:42A.M Divalproex Sodium (Depakote) 500 MG TABLET.DR 2 Tablet ORAL TWICE DAILY Comments: Last Taken: 11/28/17 Time: 9:42 AM Apixaban (Eliquis) 5 MG TABLET 1 Tablet ORAL TWICE DAILY Qty = 60 Comments: Last Taken: 11/28/17 Time: 9:42AM Esomeprazole Magnesium (Nexium) 20 MG CAPSULE.DR 1 Capsule ORAL DAILY Comments: NOT GIVEN IN THE HOSPITAL Oxycodone HCl (Oxycodone HCl) 5 MG TABLET 2-3 Tablet ORAL Q6H as needed for PAIN Qty = 40 Comments: NOT GIVEN IN HOSPITAL Docusate Sodium (Docusate Sodium) 100 MG CAPSULE 1 Tablet ORAL TWICE DAILY Qty = 30 Comments: NOT GIVEN THIS ADMISSION Morphine Sulfate (Ms Contin) 15 MG TABLET.ER 1 Tablet ORAL TWICE DAILY Qty = 6 Instructions: STOP AFTER THREE DAYS Comments: NOT GIVEN IN HOSPITAL Start taking the following new medications: Amlodipine Besylate (Amlodipine Besylate) 5 MG TABLET 1 Tablet ORAL DAILY Qty = 30 No Refills Comments: NOT GIVEN THIS ADMISSION Copies To: Francisca Ortiz DO Attending MD Review Statement Documenting Attending: Betsy LION,Tamara Other Findings: Patient medically stable for discharge to home with home services. MELANIE resolved at discharge. Patient cleared stairs with physical therapy here. Follow up with vascular surgery in 1-2 weeks and PCP in 1 week.
--- NOTE | 2017-11-27 11:25 | Patient Discharge Instructions ---
Discharge Instructions General Discharge Information Special Instructions: - Please follow up with your vascular surgeon within 1-2 weeks of discharge. - Please continue your wound VAC care by visiting nurse per protocol. - Please follow up with your primary care physician within 1-2 weeks of discharge. Inform your primary care physician of this admission to [facility]. - Continue your current medications per discharge instructions. - Please watch for these problems: Fever, Chills, Nausea, Vomiting, Shortness of Breath, Productive Cough, Chest Pain/Discomfort, Abdominal Pain, Active Bleeding or Bloody urine/stool. Diet Continue normal diet: Yes Activity Full Activity/No Limits: Yes Acute Coronary Syndrome Inclusion Criteria At DC or during hospital stay patient has or had the following: ACS DIAGNOSIS No Discharge Core Measures Meds if any: Prescribed or Continued at Discharge Meds if any: NOT Prescribed or Continued at Discharge Congestive Heart Failure Inclusion Criteria At DC or during hospital stay patient has or had the following: CHF DIAGNOSIS No Discharge Core Measures Meds if any: Prescribed or Continued at Discharge Meds if any: NOT Prescribed or Continued at Discharge Cerebrovascular accident Inclusion Criteria At DC or during hospital stay patient has or had the following: CVA/TIA Diagnosis No Discharge Core Measures Meds if any: Prescribed or Continued at Discharge Meds if any: NOT Prescribed or Continued at Discharge Venous thromboembolism Inclusion Criteria VTE Diagnosis No VTE Type NONE VTE Confirmed by (Test) NONE Discharge Core Measures - Per Current guidelines, there needs to be overlap - treatment for the first 5 days of Warfarin therapy. - If discharged on Warfarin prior to 5 days of - overlap therapy, the patient will need to be - assessed for post discharge needs including - *Post discharge parental anticoagulation - *Warfarin and/or parental anticoagulation education - *Follow up date to check INR post discharge At least 5 days overlap therapy as Inpatient No Meds if any: Prescribed or Continued at Discharge Note: Overlap Therapy is Warfarin and Anticoagulant Meds if any: NOT Prescribed or Continued at Discharge
[2017-11-27 14:19] VITALS: BP 120/62
[2017-11-27] MEDS ORDERED: AMLODIPINE BESYL5 M1 PO (14:57)
[2017-11-27 21:30] VITALS: BP 142/60
[2017-11-28 06:19] VITALS: BP 134/58
--- NOTE | 2017-11-28 07:25 | PN- Housestaff ---
See Addendum Subjective Follow-up For: MELANIE Subjective: No acute events overnight. Pt was to be discharged yesterday pending arrival of wound vac from outside vendor, however wound vac did not arrive in time. Pt will be discharged today to home with home PT. Review of Systems Constitutional: Reports: see HPI. Objective Last 24 Hrs of Vital Signs/I&O Vital Signs Date Time Temp Pulse Resp B/P B/P Pulse O2 O2 Flow FiO2 Mean Ox Delivery Rate 11/28 0619 97.8 56 18 134/58 97 Room Air 11/27 2130 97.9 57 18 142/60 96 Room Air 11/27 1419 98.2 57 20 120/62 97 Room Air 11/27 0813 Room Air Intake & Output 11/28 0800 11/28 0000 11/27 1600 Intake Total 800 Output Total 800 1250 Balance -800 -450 Intake, Oral 800 Number 1 Bowel Movements Output, Urine 800 1250 Physical Exam General Appearance: Alert, Oriented X3, Cooperative, No Acute Distress Skin: LLE SWELLING IMPROVED SINCE ADMISSION, DRESSING TO L GROIN CLEAN DRY INTACT Cardiovascular: Regular Rate, Normal S1, Normal S2 Lungs: Clear to Auscultation, Normal Air Movement Abdomen: Soft, No Tenderness Neurological: Strength at 5/5 X4 Ext Extremities: No Edema Assessment/Plan Assessment: Mr Nicholson is a 62-year-old gentleman with past mental history of hypertension peripheral vascular disease hyperlipidemia asthma and GERD, recent L femoropopliteal graft thrombolysis x2 on November 04; and I+D on November 18 for surgical site infection, presents with LLE swelling and pain. Admitted for R/O DVT; MELANIE #R/O DVT, left lower extremity swellingnegative for DVT per ultrasound dressings. Wound vac was to arrive yesterday but got here late last night. Will be placed today for patient discharge, changed M-W-F to 125mmHg consider femur CT to r/o #MELANIE - resolved -BUN/creatinine upon admission 57/2.6, trended down to 54/2.2 on November 25; 34/1.2 on 11/26; 22/1.0 on 11/27. -CPK neg -Patient no longer on IV fluids, tolerating by mouth and encouraged to increase intake #Left wound I&D today for patient discharge, changed outpt M-W-F to 125mmHg DVT prophylaxis Regular diet Full code Discharge today to home with home PT Problem List: 1. Acute kidney injury Pain Ratin Pain Location: na Pain Goal: Remain pain free Pain Plan: na Tomorrow's Labs & Rationales: na
[2017-11-28 15:02] VITALS: BP 150/58
== END 2017-11-28 18:43 | disposition home health service (06) | DRG 469 ==
LOC: ERH 21:52 → ERHI 23:50 → ENRESERV 11-25 00:44 → 2NB 11-25 01:10 → ENPENDDIS 11-28 11:45 → 2NB 11-28 18:43
PROVIDERS: Physical Medicine & Rehabilitation; Physician Assistant Medical
PROC: 2W1LX6Z Compression of Right Lower Extremity using Pressure Dressing (ICD-10-PCS; principal; 2017-11-27)
DX: N17.9 Acute kidney failure, unspecified (principal); I73.9 Peripheral vascular disease, unspecified; I10 Essential (primary) hypertension; I25.10 Atherosclerotic heart disease of native coronary artery without angina pectoris; E78.5 Hyperlipidemia, unspecified; J45.909 Unspecified asthma, uncomplicated; K21.9 Gastro-esophageal reflux disease without esophagitis; R60.0 Localized edema; Z88.1 Allergy status to other antibiotic agents; Z79.891 Long term (current) use of opiate analgesic; G40.909 Epilepsy, unspecified, not intractable, without status epilepticus; Z95.1 Presence of aortocoronary bypass graft
CPT/HCPCS: 2NBSP; 84133; 84300; 36415; 36592; 81003; 82436; 82570; 93005; 93010; 96372; 97116-GO; 97161-GP; 97530-GO; J3490

== ENCOUNTER 2017-11-30 06:40 | Emergency (ER) | payer OTHER ==
[~2017-11-30] VITALS: Ht 170.2 cm; Wt 86.2 kg
[~2017-11-30 06:40] MED LIST changes: +AMLODIPINE BESYL5 M1 PO
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
[2017-11-30 08:33] LABS: ABSOLUTE BASOPHIL COUNT 0.1 /CUMM (0.0-0.2); ABSOLUTE EOSINOPHIL COUNT 0.1 /CUMM (0.0-0.7); ABSOLUTE GRANULOCYTE CT 3.2 /CUMM (1.4-6.5); ABSOLUTE LYMPH COUNT 1.5 /CUMM (1.2-3.4); ABSOLUTE MONOCYTE COUNT 0.5 /CUMM (0.10-0.60); BASOPHIL % 1.1 % (0.0-2.0); EOSINOPHIL % 2.5 % (0-5); GRANULOCYTE % 60.2 % (42.2-75.2); HEMATOCRIT 29.1 % (42-52); MEAN CORPUSCULAR HGB 30.1 PG (27.0-31.0); MEAN CORPUSCULAR VOLUME 88.6 FL (80.0-94.0); MEAN PLATELET VOLUME 6.8 FL (7.4-10.4); PLATELET COUNT 238 /CUMM (130-400); RED BLOOD CELL CT 3.28 /CUMM (4.70-6.10); WHITE BLOOD CELL COUNT 5.3 /CUMM (4.8-10.8)
[2017-11-30 09:21] VITALS: BP 186/82
== END 2017-11-30 10:02 ==
LOC: ERH 06:40
PROVIDERS: Physician Assistant
DX: R10.32 Left lower quadrant pain (principal); Z43.9 Encounter for attention to unspecified artificial opening